=== PATIENT | female | born 1995 | race Caucasian/White ===

== ENCOUNTER 2016-12-21 13:06 | Emergency (ER) | payer SELFPAY ==
[2016-12-21] MEDS ORDERED: Fluorescein Sodium TOPICAL* 1 MG TEST ONE (13:14)
[2016-12-21] MEDS ORDERED: BSS OPTH.SOL* BTL ONE (13:14)
[2016-12-21 13:18] VITALS: BP 108/75
--- NOTE | 2016-12-21 13:51 | UC ---
Eye Complaint HPI - HPI Summary HPI Summary: L eye redness, pain, tearing, and severe light sensitivity since last night. Pt wears contacts sleeps in them "all the time," and hasn't changed them for several months. Thinks they're supposed to be discarded monthly. - History of Current Complaint Chief Complaint: UCEye Stated Complaint: EYE COMPLAINT Time Seen by Provider: 12/21/16 13:30 Hx Obtained From: Patient Hx Last Menstrual Period: 12/14/16 ?: No Onset/Duration: Gradual Onset, Lasting Days Timing: Constant Severity Initially: Moderate Severity Currently: Severe Location of Injury: Conjunctiva Character: Sharp Aggravating Factor(s): Light Alleviating Factor(s): Darkness Associated Signs And Symptoms: Positive: Photophobia, Drainage (Clear) - Risk Factors Penetrating Injury Risk Factor: Negative Acute Glaucoma Risk Factors: Negative - Allergies/Home Medications Allergies/Adverse Reactions: Allergies Allergy/AdvReac Type Severity Reaction Status Date / Time Codeine Allergy Nausea And Verified 08/20/16 11:21 Vomiting Olanzapine [From Zyprexa] Allergy Rash Verified 08/20/16 11:21 PMH/Surg Hx/FS Hx/Imm Hx Endocrine History Of: Reports: Thyroid Disease - hx of Denies: Diabetes Cardiovascular History Of: Denies: Cardiac Disorders, Hypertension Respiratory History Of: Denies: COPD, Asthma GI/ History Of: Denies: Ulcer Psychological History Of: Reports: Anxiety, Bipolar Disorder Other History Of: Negative For: Anticoagulant Therapy - Surgical History Surgical History: None - Family History Known Family History: Positive: Hypertension, Diabetes, Other - glaucoma - Social History Alcohol Use: Occasionally Substance Use Type: None Smoking Status (MU): Heavy Every Day Tobacco Smoker Type: Cigarettes Amount Used/How Often: 1/2 ppd Have You Smoked in the Last Year: Yes Household Exposure Type: Cigarettes Review of Systems Constitutional: Negative Skin: Negative Eyes: Drainage, Eye Redness, Photophobia ENT: Negative Respiratory: Negative Cardiovascular: Negative Gastrointestinal: Negative Genitourinary: Negative Motor: Negative Neurovascular: Negative Musculoskeletal: Negative Neurological: Negative Psychological: Negative All Other Systems Reviewed And Are Negative: Yes Physical Exam Triage Information Reviewed: Yes Appearance: Well-Nourished, Pain Distress - mod Vital Signs: Initial Vital Signs Temp 98.4 F 12/21/16 13:12 Pulse 94 12/21/16 13:12 Resp 12 12/21/16 13:12 BP 108/75 12/21/16 13:12 Pulse Ox 100 12/21/16 13:12 Eye Exam: Other - unable to assess pupillary reaction due to pt photophobia Eyes: Positive: Conjunctiva Inflamed, Other: - pinpoint fluorescein uptake in L cornea, near upper medial central vision ENT: Positive: Hearing grossly normal, Pharynx normal, Nasal drainage, TMs normal. Negative: Tonsillar swelling, Tonsillar exudate Dental Exam: Normal Neck exam: Normal Neck: Positive: Supple, Nontender, No Lymphadenopathy Respiratory Exam: Normal Respiratory: Positive: Chest non-tender, Lungs clear, Normal breath sounds, No respiratory distress, No accessory muscle use Cardiovascular Exam: Normal Cardiovascular: Positive: RRR, No Murmur Musculoskeletal Exam: Normal Neurological Exam: Normal Neurological: Positive: Alert Psychological Exam: Normal Skin Exam: Normal Eye Complaint Course/Dx - Differential Dx/Diagnosis Provider Diagnoses: L eye keratitis Discharge - Discharge Plan Condition: Stable Disposition: HOME Patient Education Materials: Keratitis (ED) Referrals: Ji Mccracken MD [Medical Doctor] - Additional Instructions: Please follow up at [facility] at 2:15 today as scheduled. Their base fee for the appointment is $198.
== END 2016-12-21 13:55 | disposition home or self-care (01) ==
LOC: UCEAST 13:06
DX: H16.9 Unspecified keratitis (principal); Z88.5 Allergy status to narcotic agent; F17.210 Nicotine dependence, cigarettes, uncomplicated
CPT/HCPCS: 99211; A9270-GY; G0463

== ENCOUNTER 2017-09-15 14:49 | Emergency (ER) | payer SELFPAY ==
[2017-09-15 14:59] VITALS: BP 111/67
--- NOTE | 2017-09-15 18:52 | UC ---
Justice Elliott Alfonso, scribed for Nellie Dos Santos DO on 09/15/17 at 1623 . General HPI - HPI Summary HPI Summary: This patient is a 21 year old F presenting to [facility] accompanied by male with a chief complaint of productive coughing interfering with sleep since one week ago. The patient rates the pain 1/10 in severity. Symptoms aggravated by supine position, tobacco use and deep breaths. Symptoms alleviated by nothing. Patient reports chest congestion, sore throat, rhinorrhea, insomnia, and orthopnea. Patient denies fever, chills, hemoptysis, ear ache, rash, and headache. Medications reviewed this visit. - History of Current Complaint Chief Complaint: UCRespiratory Stated Complaint: COUGH Time Seen by Provider: 09/15/17 16:16 Hx Obtained From: Patient Hx Last Menstrual Period: iud Onset/Duration: Gradual Onset, Lasting Weeks - 1, Still Present Timing: Constant Onset Severity: Moderate Current Severity: Moderate Pain Intensity: 1 - /10 Associated Signs & Symptoms: Positive: Other - chest congestion, sore throat, rhinorrhea. Patient denies fever, chills, hemoptysis, ear ache, rash, and headache. - Allergy/Home Medications Allergies/Adverse Reactions: Allergies Allergy/AdvReac Type Severity Reaction Status Date / Time Codeine Allergy Nausea And Verified 09/15/17 14:59 Vomiting Olanzapine [From Zyprexa] Allergy Rash Verified 09/15/17 14:59 Home Medications: Home Medications Pseudoephedrine-Guaifenesin [Mucinex D 60-600 mg] 1 tab PO Q12H PRN 09/15/17 [ History Confirmed 09/15/17] PMH/Surg Hx/FS Hx/Imm Hx Psychological History: Anxiety Other History Of: Negative For: Anticoagulant Therapy - Surgical History Surgical History: None - Family History Known Family History: Positive: Hypertension, Diabetes, Other - glaucoma - Social History Alcohol Use: Occasionally Substance Use Type: None Smoking Status (MU): Heavy Every Day Tobacco Smoker Type: Cigarettes Amount Used/How Often: 1/2 ppd Have You Smoked in the Last Year: Yes Household Exposure Type: Cigarettes Review of Systems ENT: Sore Throat, Nasal Discharge Respiratory: Cough, Other - chest congestion, orthopnea Neurological: Other - insomnia All Other Systems Reviewed And Are Negative: Yes Physical Exam Triage Information Reviewed: Yes Appearance: Well-Appearing, No Pain Distress, Well-Nourished Vital Signs: Initial Vital Signs Temp 98.3 F 09/15/17 14:54 Pulse 118 09/15/17 14:54 Resp 20 09/15/17 14:54 BP 111/67 09/15/17 14:54 Pulse Ox 98 09/15/17 14:54 Vital Signs Reviewed: Yes Eyes: Positive: Conjunctiva Clear. Negative: Discharge ENT: Positive: Hearing grossly normal, Pharynx normal, TMs normal. Negative: Tonsillar swelling, Tonsillar exudate, Trismus, Muffled/hoarse voice Neck: Positive: Supple, Nontender Respiratory: Positive: Chest non-tender, Lungs clear, Normal breath sounds, No respiratory distress, Other: - Bronchospasm Cardiovascular: Positive: RRR - 84 BPM, No Murmur Abdomen Description: Positive: Nontender, Soft Bowel Sounds: Positive: Present Musculoskeletal Exam: Normal Neurological: Positive: Alert, Muscle Tone Normal Psychological: Positive: Age Appropriate Behavior Skin Exam: Normal Skin: Positive: Other - Normal, Warm, Dry, Normal color Course/Dx - Course Course Of Treatment: This patient is a 21 year old F presenting to [facility] accompanied by male with a chief complaint of productive coughing since one week ago. The patient rates the pain 1/10 in severity. Symptoms aggravated by tobacco use and deep breaths. Symptoms alleviated by nothing. Patient reports chest congestion, sore throat, rhinorrhea, insomnia, and orthopnea. Patient denies fever, chills, hemoptysis, ear ache, rash, and headache. Medications reviewed this visit. She reports having taken codeine cough surup with no problems in the past. Patient will be discharged with prescription and follow up from PCP. The patient is agreeable with this plan. - Differential Dx - Multi-Symptom Provider Diagnoses: bronchospasm Discharge - Discharge Plan Condition: Stable Disposition: HOME Prescriptions: Albuterol HFA INHALER* [Ventolin HFA Inhaler*] 2 puff INH Q4H PRN #1 mdi PRN Reason: Sob/Wheezing Benzonatate CAP* [Tessalon 100 MG CAP*] 100 mg PO TID #30 cap guaiFENesin/CODIEN 100MG-10MG* [Robitussin AC 100Mg-10Mg*] 5 - 10 ml PO Q4H PRN #100 udc MDD 10ml PRN Reason: Cough Patient Education Materials: Bronchospasm (ED) Forms: *Work Release Referrals: [facility] [Outside] Additional Instructions: POST-VIRAL COUGH: A very common cause of persistent cough is called "post-viral cough syndrome." During a viral infection, the virus can irritate your bronchial tubes. Then even after the infection is over, you may continue to cough. Your cough is left over from your recent viral infection. You do not show evidence of a continuing viral infection,bronchitis or pneumonia. You do not need antibiotics at this time. It may be helpful to use inhaled cool mist, throat lozenges, cough medication or bronchial inhalers to open up your bronchial tubes. We expect you will be improved in a week or two. Please get back to us if you have fever, chest pain, colored sputum, blood in the sputum, wheezing or shortness of breath. INHALED BRONCHODILATORS: You have received a prescription for an inhaled bronchodilator -- a medication which stimulates the airways in the lung to dilate. This improves the flow of air in asthma, bronchitis, and emphysema. These medicines have some similarity to adrenaline, and can cause similar side effects: shakiness, racing heart, and a sense of nervousness. These side effects decrease with time. Contact your doctor if these side effects are severe. Do not over-use the medicine. Too-frequent use of the inhaler may make it ineffective. Call your doctor if the inhaler is not controlling your symptoms at the prescribed doses. COUGH-SUPPRESSANT & EXPECTORANT MEDICATION: You are to use a cough medication as needed for relief of symptoms. This medicine is a combination of an expectorant (to make the mucous thinner and more easily "coughed up") and a cough suppressant (to reduce the frequency of coughing). The cough-suppressant medicine is related to narcotics. You may experience mild nausea and sleepiness. Some patients who are very sensitive to narcotics may have stomach pain from this medicine. Taking the medicine with food reduces these side effects. Do not drive or work with machinery until you know how this medicine affects you. The expectorant should have no side effects. Iodine-containing expectorants (such as organidin) should not be taken by persons with active thyroid disease unless approved by your doctor. Call the doctor if you develop shortness of breath, hives, rash, itching, lightheadedness, or severe nausea and vomiting. EXPECTORANT MEDICATION:Continue mucinex An expectorant medicine has been prescribed. This type of drug makes mucous thinner, helping the sinuses, nose, and bronchial tubes to remain free of pus and mucous. Expectorants make a cough less severe and more comfortable, and help infected sinuses drain. In general, antihistamines defeat the purpose of the expectorant by making mucous thicker. They should be avoided unless specifically recommended by your physician. TESSALON PERLES: You have received a prescription for Tessalon Perles (benzonatate). This is a non-narcotic medicine for relief of cough. It usually works in about 15- 20 minutes and lasts around four hours. Tessalon Perles should be swallowed. They should not be chewed or dissolved in the mouth (this can produce temporary numbing of the mouth and choking can occur). If you develop any adverse effects such as wheezing, shortness of breath, hives, rash, itching, or lightheadedness, please return at once. FOLLOW-UP CARE: You should establish with a private physician for follow-up care. If you are unable to get a timely appointment, or if you are worsening, call us or return for re-evaluation. An additional resource available to assist in finding the appropriate physician for your health care needs is the [facility]erral [facility]. You may contact them by calling [phone]. The documentation as recorded by the Justice bowles Alfonso accurately reflects the service I personally performed and the decisions made by me, Nellie Dos Santos DO.
== END 2017-09-15 17:01 | disposition home or self-care (01) ==
LOC: UCEAST 14:49
DX: J98.01 Acute bronchospasm (principal); Z88.5 Allergy status to narcotic agent; F41.9 Anxiety disorder, unspecified; F17.210 Nicotine dependence, cigarettes, uncomplicated
CPT/HCPCS: 99212; G0463

== ENCOUNTER 2018-03-21 11:53 | Emergency (ER) | payer SELFPAY ==
[2018-03-21 13:06] LABS: ABS Basophils 0 10^3/ul (0-0.2); ABS Eosinophils 0.1 10^3/ul (0-0.6); ABS Lymphocytes 1.1 10^3/ul (1.0-4.8); ABS Monocytes 0.7 10^3/ul (0-0.8); ABS Nucleated RBC 0 10^3/ul; Eosinophil % 0.5 % (0-6); Hematocrit 46 % (35-47); Hemoglobin 15.4 g/dl (12.0-16.0); Mean Corpuscular HGB Conc 34 g/dl (31-36); Mean Corpuscular Hemoglobin 31 pg (27-31); Mean Corpuscular Volume 94 fL (80-97); Mean Platelet Volume 8.7 um3 (7.4-10.4); Nucleated Red Blood Cells % 0.1; Platelet Count 212 10^3/ul (150-450); Red Cell Distribution Width 13 % (10.5-15); White Blood Count 9.9 10^3/ul (3.5-10.8)
[2018-03-21 13:22] LABS: EGFR Non-African American 74.7 (>60)
--- NOTE | 2018-03-21 15:53 | ED ---
Substance Abuse/Use - HPI Summary HPI Summary: Patient is a 22-year-old female presenting to the ED requesting detox. She states she has been drinking alcohol and using cocaine daily. She endorses daily use which is affecting her daily life. She lives with her 4-year-old at home and is requesting a treatment, either outpatient or inpatient. She denies any pain today, but endorses fatigue. Last use of cocaine and alcohol were yesterday. Denies any cannabis. She is otherwise healthy and takes no medications. She denies any other concerns or symptoms on this date. Denies any cardiac history. No prior admissions to treatment facilities. History of bipolar disorder and thyroid disease. - History Of Current Complaint Chief Complaint: EDDetoxRequest Stated Complaint: ALCOHOL/DRUG REHAB REQUEST Time Seen by Provider: 03/21/18 12:31 Hx Obtained From: Patient Hx Last Menstrual Period: iud ?: No Onset/Duration of Drug/ETOH Abuse: Years Ingestion History: Type/Name Of Drug - Alcohol and cocaine, Amount Ingested Overdose Characteristics: Oral, IV Timing Of Abuse: Daily Severity Initially: Severe Severity Currently: Severe Aggravating Factor(s): Nothing Alleviating Factor(s): Nothing - Allergies/Home Medications Allergies/Adverse Reactions: Allergies Allergy/AdvReac Type Severity Reaction Status Date / Time MS Codeine [Codeine] Allergy Nausea And Verified 03/21/18 11:58 Vomiting MS Olanzapine [From Zyprexa] Allergy Rash Verified 03/21/18 11:58 Home Medications: Home Medications Levonorgestrel (Iud) [Mirena IUD] 20 mcg IU SEE INSTRUCTIONS 03/21/18 [History Confirmed 03/21/18] PMH/Surg Hx/FS Hx/Imm Hx Previously Healthy: Yes Endocrine/Hematology History: Reports: Hx Thyroid Disease - hx of Denies: Hx Anticoagulant Therapy, Hx Diabetes Cardiovascular History: Denies: Hx Hypertension Respiratory History: Denies: Hx Asthma, Hx Chronic Obstructive Pulmonary Disease (COPD) GI History: Denies: Hx Ulcer Psychiatric History: Reports: Hx Anxiety, Hx Bipolar Disorder Infectious Disease History: No Infectious Disease History: Denies: Hx Clostridium Difficile, Hx Hepatitis, Hx Human Immunodeficiency Virus (HIV), Hx of Known/Suspected MRSA, Hx Shingles, Hx Tuberculosis, Hx Known/ Suspected VRE, Hx Known/Suspected VRSA, History Other Infectious Disease, Traveled Outside the [place] in Last 30 Days - Family History Known Family History: Positive: None, Hypertension, Diabetes, Other - glaucoma - Social History Occupation: Employed Part-time Lives: With Family Alcohol Use: Occasionally Hx Substance Use: Yes Substance Use Type: Reports: Cocaine, Marijuana, Synthetic Drugs, Prescribed Hx Tobacco Use: Yes Smoking Status (MU): Heavy Every Day Tobacco Smoker Type: Cigarettes Amount Used/How Often: 1/2 ppd Have You Smoked in the Last Year: Yes Review of Systems Positive: Fatigue. Negative: Fever, Chills, Skin Diaphoresis Negative: Photophobia, Blurred Vision, Diplopia Negative: Dental Pain, Sore Throat Negative: Palpitations, Chest Pain Negative: Shortness Of Breath, Cough Negative: Abdominal Pain, Vomiting Genitourinary: Negative Positive: no symptoms reported, see HPI Negative: Arthralgia, Myalgia Negative: Headache, Weakness, Paresthesia Positive: Anxious, Depressed All Other Systems Reviewed And Are Negative: Yes Physical Exam Triage Information Reviewed: Yes Vital Signs On Initial Exam: Initial Vitals Temp Pulse Resp BP Pulse Ox 97.9 F 76 15 120/86 100 03/21/18 11:55 03/21/18 11:55 03/21/18 11:55 03/21/18 11:55 03/21/18 11:55 Vital Signs Reviewed: Yes Appearance: Positive: Well-Appearing, Well-Nourished Skin: Positive: Skin Color Reflects Adequate Perfusion Head/Face: Positive: Normal Head/Face Inspection Eyes: Positive: EOMI, ZAC Neck: Positive: Supple, Nontender, No Lymphadenopathy Respiratory/Lung Sounds: Positive: Clear to Auscultation Cardiovascular: Positive: RRR, Pulses are Symmetrical in both Upper and Lower Extremities Musculoskeletal: Positive: Strength/ROM Intact Neurological: Positive: Sensory/Motor Intact, Alert, Oriented to Person Place, Time, Speech Normal Psychiatric: Positive: Affect/Mood Appropriate AVPU Assessment: Alert Diagnostics - Vital Signs Vital Signs Temp Pulse Resp BP Pulse Ox 03/21/18 11:55 97.9 F 76 15 120/86 100 - Laboratory Lab Results: Lab Results 03/21/18 03/21/18 03/21/18 Range/Units 12:56 12:56 12:56 WBC 9.9 (3.5-10.8) 10^3/ul RBC 4.90 (4.0-5.4) 10^6/ul Hgb 15.4 (12.0-16.0) g/dl Hct 46 (35-47) % MCV 94 (80-97) fL MCH 31 (27-31) pg MCHC 34 (31-36) g/dl RDW 13 (10.5-15) % Plt Count 212 (150-450) 10^3/ul MPV 8.7 (7.4-10.4) um3 Neut % (Auto) 80.9 (38-83) % Lymph % (Auto) 11.0 L (25-47) % [place] % (Auto) 7.4 H (0-7) % Eos % (Auto) 0.5 (0-6) % Baso % (Auto) 0.2 (0-2) % Absolute Neuts (auto) 8.0 H (1.5-7.7) 10^3/ul Absolute Lymphs (auto) 1.1 (1.0-4.8) 10^3/ul Absolute Monos (auto) 0.7 (0-0.8) 10^3/ul Absolute Eos (auto) 0.1 (0-0.6) 10^3/ul Absolute Basos (auto) 0 (0-0.2) 10^3/ul Absolute Nucleated RBC 0 10^3/ul Nucleated RBC % 0.1 Sodium 139 (139-145) mmol/L Potassium 3.7 (3.5-5.0) mmol/L Chloride 103 (101-111) mmol/L Carbon Dioxide 27 (22-32) mmol/L Anion Gap 9 (2-11) mmol/L BUN 6 (6-24) mg/dL Creatinine 0.93 (0.51-0.95) mg/dL Est GFR ( Amer) 96.1 (>60) Est GFR (Non-Af Amer) 74.7 (>60) BUN/Creatinine Ratio 6.5 L (8-20) Glucose 93 (70-100) mg/dL Calcium 10.0 (8.6-10.3) mg/dL Total Bilirubin 0.60 (0.2-1.0) mg/dL AST 19 (13-39) U/L ALT 12 (7-52) U/L Alkaline Phosphatase 53 (34-104) U/L Total Protein 8.0 (6.4-8.9) g/dL Albumin 5.0 (3.2-5.2) g/dL Globulin 3.0 (2-4) g/dL Albumin/Globulin Ratio 1.7 (1-3) Salicylates < 2.50 (<30) mg/dL Serum Alcohol < 10 (<10) mg/dL Hepatitis C Antibody Nonreactive (Nonreactive) HIV 1&2 Antibody Nonreactive (Nonreactive) Result Diagrams: 03/21/18 12:56 03/21/18 12:56 Lab Statement: Any lab studies that have been ordered have been reviewed, and results considered in the medical decision making process. Course/Dx - Course Course Of Treatment: During the course of treatment, EKG and labs are obtained for clearance to treatment facility. Lungs are clear to auscultation. RRR. Patient is alert and oriented 3. She appears to be somewhat anxious over attending a treatment facility and is asking questions in regards to outpatient as opposed to inpatient. Social work consult called and given information. [facility] made aware of patient. All labs and EKG were given to [facility] advocate on arrival. Patient is okay with plan of discharge to treatment facility. - Diagnoses Differential Diagnosis/HQI/PQRI: Positive: Alcohol Abuse, Bipolar Disorder, Drug Abuse Provider Diagnoses: Alcohol abuse, Drug abuse Discharge - Sign-Out/Discharge Documenting (check all that apply): Discharge/Admit/Transfer - Discharge Plan Condition: Stable Disposition: HOME Patient Education Materials: Polysubstance Abuse (ED), Medical Clearance for Substance Abuse Treatment (ED) Forms: *Work Release Referrals: No Primary Care Phys,NOPCP [Primary Care Provider] - Additional Instructions: Please go directly to a treatment facility - Billing Disposition and Condition Condition: STABLE Disposition: HOME
[2018-03-21 15:57] VITALS: BP 125/80
== END 2018-03-21 15:55 | disposition home or self-care (01) ==
LOC: ED 11:53
DX: F10.10 Alcohol abuse, uncomplicated (principal); F19.10 Other psychoactive substance abuse, uncomplicated; R53.83 Other fatigue; F17.210 Nicotine dependence, cigarettes, uncomplicated
CPT/HCPCS: 36415; 80053; 80320; 80329; 85025; 86703; 86803; 93005; 99282; G0480

== ENCOUNTER 2018-04-11 07:21 | Emergency (ER) | payer SELFPAY ==
[2018-04-11 07:37] VITALS: BP 105/72
[2018-04-11] MEDS ORDERED: Acetaminophen TAB* 325 MG PO ONE (08:06)
--- NOTE | 2018-04-11 08:11 | UC ---
Velasquez Elliott Julia, scribed for Gardenia Lopez MD on 04/11/18 at 0755 . Throat Pain/Nasal Bryan HPI - HPI Summary HPI Summary: This patient is a 22 year old F presenting to [facility] [place] with a chief complaint of sore throat and headache for the past three days. Patient reports chills, ear pain, and mild nausea. Patient denies rashes. The patient rates the pain 6/10 in severity. Pt has taken Excedrin taken last evening, but no other medications taken since then. + sick contacts. + painful swallowing, no drooling. No rash. no vision changes, ear pain. No sinus congestion, + fatigue. 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 No concern for . Allergies reviewed with patient. - History of Current Complaint Chief Complaint: UCGeneralIllness Stated Complaint: HEADACHE,SORE THROAT Time Seen by Provider: 04/11/18 07:36 Hx Obtained From: Patient Hx Last Menstrual Period: states does not get period - on mirena Onset/Duration: Lasting Days, Still Present Pain Intensity: 6 Pain Scale Used: 0-10 Numeric Cough: None Associated Signs & Symptoms: Positive: Fever. 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 Lives: With Family Alcohol Use: Weekly Substance Use Type: None Smoking Status (MU): Heavy Every Day Tobacco Smoker Type: Cigarettes Amount Used/How Often: 1/2 ppd Have You Smoked in the Last Year: Yes Household Exposure Type: Cigarettes Review of Systems Constitutional: Fever, Chills Skin: Negative ENT: Sore Throat Gastrointestinal: Nausea Neurological: Headache All Other Systems Reviewed And Are Negative: Yes Physical Exam Triage Information Reviewed: Yes Appearance: Well-Appearing, No Pain Distress, Well-Nourished, Other: - tired appearing Vital Signs: Initial Vital Signs Temp 101.7 F 04/11/18 07:30 Pulse 104 04/11/18 07:30 Resp 18 04/11/18 07:30 BP 105/72 04/11/18 07:30 Pulse Ox 98 04/11/18 07:30 Vital Signs Reviewed: Yes Eye Exam: Normal Eyes: Positive: Conjunctiva Clear ENT Exam: Normal ENT: Positive: Hearing grossly normal, Pharynx normal, Pharyngeal erythema, Nasal congestion, TMs normal, Tonsillar exudate, Uvula midline. Negative: Sinus tenderness Dental Exam: Normal Neck: Positive: Supple, Nontender. Negative: No Lymphadenopathy - mild submandibular LA L>R Respiratory Exam: Normal Respiratory: Positive: Chest non-tender, Lungs clear, Normal breath sounds, No respiratory distress, No accessory muscle use Cardiovascular Exam: Normal Cardiovascular: Positive: RRR, No Murmur Abdominal Exam: Normal Abdomen Description: Positive: Nontender, No Organomegaly, Soft Bowel Sounds: Positive: Present Musculoskeletal Exam: Normal Musculoskeletal: Positive: Strength Intact Neurological Exam: Normal Neurological: Positive: Alert Psychological Exam: Normal Psychological: Positive: Normal Response To Family Skin Exam: Normal Throat Pain/Nasal Course/Dx - Course Course Of Treatment: pt with fever, headache, progressive sore throat. Pt with + strep. Will Rx amox (pt given urgent RX - no insurance). motrin/apap. gargle spit. secretion precaution. return precaution. pt comfortable and in agreement with plan - Differential Dx/Diagnosis Provider Diagnoses: strep pharyngitis Discharge - Sign-Out/Discharge Documenting (check all that apply): Discharge/Admit/Transfer - Discharge Plan Condition: Stable Disposition: HOME Prescriptions: Amoxicillin PO (*) [Amoxicillin 875 MG (*)] 875 mg PO BID #20 tab Ibuprofen TAB* [Motrin TAB* 600 MG] 600 mg PO Q6H PRN #30 tab PRN Reason: pain or fever Patient Education Materials: Strep Throat (ED) Forms: *Work Release Referrals: No Primary Care Phys,NOPCP [Primary Care Provider] - Additional Instructions: - Okay to alternate ibuprofen (Advil, Motrin)600mg and Tylenol 1000mg every 3 hours for pain. Take with food. Do NOT take for more than 4-5 days. - Okay to gargle and spit every 4 hours as needed for pain - Stay well hydrated - frequent sips of cold fluids will be soothing to your throat (popsicles, jello, ice cream, ice water). Avoid excess caffeine until your symptoms have resolved. - Do not share eating, drinking utensils.Do not share eating or drinking utensils until you symptoms are resolved. Clean items that may get your secretions such as cell phones, ipads, computer mouse, television remotes. Once you have been on antibiotics for 48 hours, change your toothbrush and your pillowcase. Contact your doctor or return with any questions or concerns - Billing Disposition and Condition Condition: STABLE Disposition: HOME The documentation as recorded by the Velasquez bowles Julia accurately reflects the service I personally performed and the decisions made by me, Gardenia Lopez MD.
== END 2018-04-11 08:22 | disposition home or self-care (01) ==
LOC: UCEAST 07:21
DX: J02.0 Streptococcal pharyngitis (principal); Z88.8 Allergy status to other drugs, medicaments and biological substances; F17.210 Nicotine dependence, cigarettes, uncomplicated
CPT/HCPCS: 87651; 99212; A9270-GY; G0463

== ENCOUNTER 2018-05-23 01:06 | Emergency (ER) | payer OTHER ==
[2018-05-23] MEDS ORDERED: methylPREDNISolone 125 MG* 2 ML VIAL IV ONE (01:28)
[2018-05-23] MEDS ORDERED: Famotidine IV* 10 MG/ML 2 ML (20 mg) IV ONE (01:28)
[2018-05-23] MEDS ORDERED: diPHENhydraMINE IV* 50 MG/ML 1 ml VIAL (BENADRYL) IV ONE (01:28)
[2018-05-23] MEDS ORDERED: NS 0.9% 1000 ML* 1,000 ML IV ONE (01:28)
[2018-05-23] MEDS ORDERED: Famotidine IV* 10 MG/ML 2 ML (20 mg) ONE (01:33)
--- NOTE | 2018-05-23 01:36 | ED ---
Skin Complaint - HPI Summary HPI Summary: Patient complains of generalized rash on face, neck, chest, back, bilateral upper legs starting today at noon, and bifrontal headache which is consistent with prior headaches. Rashes pruritic on face only. Patient states lips are swollen, but denies swelling of the throat or tongue, SOB, fever, cough, sore throat, N/V/D, abdominal pain, change in urine or BM. Patient has taken 25 mg Benadryl at noon, 50 mg of Benadryl at 9 PM, and 25 mg at 11:30 PM without improvement in symptoms. Started new med Lamotrigine 25mg PO daily on 05/10/18 and was supposed to increase to 25 mg BID after 2 weeks, but pt misunderstood and increased to 25 mg BID after one week. Has been taking 25 MG twice a day for 6 days. Patient states provider told her she may get a rash from the medication, and to come to the ED if they got to her face. Medical history is bipolar. - History of Current Complaint Chief Complaint: EDRashSkinAbscess Time Seen by Provider: 05/23/18 01:19 Stated Complaint: RASH Hx Obtained From: Patient Hx Last Menstrual Period: states does not get period - on mirena Onset/Duration: Started Hours Ago Skin Exposure Onset/Duration: Hours Ago Timing: Constant Onset Severity: Mild Current Severity: Moderate Pain Intensity: 4 Pain Scale Used: 0-10 Numeric Skin Location: Diffuse Aggravating Symptom(s): Nothing Alleviating Symptom(s): Nothing Associated Signs & Symptoms: Rash - Allergy/Home Medications Allergies/Adverse Reactions: Allergies Allergy/AdvReac Type Severity Reaction Status Date / Time olanzapine Allergy Agitation Verified 04/11/18 07:28 PMH/Surg Hx/FS Hx/Imm Hx Endocrine/Hematology History: Reports: Hx Thyroid Disease - hx of Denies: Hx Anticoagulant Therapy, Hx Diabetes Cardiovascular History: Denies: Hx Hypertension Respiratory History: Denies: Hx Asthma, Hx Chronic Obstructive Pulmonary Disease (COPD) GI History: Denies: Hx Ulcer History: Denies: Hx Dialysis EENT History: Denies: Hx Deafness Neurological History: Denies: Hx CVA Psychiatric History: Reports: Hx Anxiety, Hx Bipolar Disorder Infectious Disease History: No Infectious Disease History: Denies: Hx Clostridium Difficile, Hx Hepatitis, Hx Human Immunodeficiency Virus (HIV), Hx of Known/Suspected MRSA, Hx Shingles, Hx Tuberculosis, Hx Known/ Suspected VRE, Hx Known/Suspected VRSA, History Other Infectious Disease, Traveled Outside the [place] in Last 30 Days - Family History Known Family History: Positive: None, Hypertension, Diabetes, Other - glaucoma - Social History Alcohol Use: Weekly Hx Substance Use: Yes Substance Use Type: Reports: None Hx Tobacco Use: Yes Smoking Status (MU): Heavy Every Day Tobacco Smoker Type: Cigarettes Amount Used/How Often: 1/2 ppd Have You Smoked in the Last Year: Yes Review of Systems Constitutional: Negative Eyes: Negative ENT: Negative Cardiovascular: Negative Respiratory: Negative Gastrointestinal: Negative Genitourinary: Negative Musculoskeletal: Negative Positive: Rash Positive: Headache Psychological: Normal All Other Systems Reviewed And Are Negative: Yes Physical Exam - Summary Physical Exam Summary: Elevated maculopapular rash on face, neck, back, chest wall, bilateral upper thighs. Rash is blanchable. Mild swelling of lips. No swelling of tongue or throat. Triage Information Reviewed: Yes Vital Signs On Initial Exam: Initial Vitals Temp Pulse Resp BP Pulse Ox 101.3 F 100 18 131/89 100 05/23/18 01:07 05/23/18 01:07 05/23/18 01:07 05/23/18 01:07 05/23/18 01:07 Vital Signs Reviewed: Yes Appearance: Positive: Well-Appearing Skin: Positive: Warm Head/Face: Positive: Normal Head/Face Inspection Eyes: Positive: Normal ENT: Positive: Normal ENT inspection Neck: Positive: Supple Respiratory/Lung Sounds: Positive: Clear to Auscultation Cardiovascular: Positive: Normal Abdomen Description: Positive: Nontender Musculoskeletal: Positive: Normal Neurological: Positive: Normal Psychiatric: Positive: Normal AVPU Assessment: Alert - Hood Coma Scale Best Eye Response: 4 - Spontaneous Best Motor Response: 6 - Obeys Commands Best Verbal Response: 5 - Oriented Coma Scale Total: 15 Diagnostics - Vital Signs Vital Signs Temp Pulse Resp BP Pulse Ox 05/23/18 01:07 101.3 F 100 18 131/89 100 - Laboratory Result Diagrams: 05/23/18 01:58 05/23/18 01:58 Lab Statement: Any lab studies that have been ordered have been reviewed, and results considered in the medical decision making process. Re-Evaluation - Re-Evaluation 1 Re-Evaluation Time: 02:45 Comment: Rash somewhat improved with Solu-Medrol, Benadryl, pepcid. She continues to have no intraoral swelling or dysphasia, or SOB. Course/Dx - Course Course Of Treatment: Patient complains of generalized rash on face, neck, chest , back, bilateral upper legs starting today at noon, and bifrontal headache which is consistent with prior headaches. Rashes pruritic on face only. Patient states lips are swollen, but denies swelling of the throat or tongue, SOB, fever, cough, sore throat, N/V/D, abdominal pain, change in urine or BM. Patient has taken 25 mg Benadryl at noon, 50 mg of Benadryl at 9 PM, and 25 mg at 11:30 PM without improvement in symptoms. Started new med Lamotrigine 25mg PO daily on 05/10/18 and was supposed to increase to 25 mg BID after 2 weeks, but pt misunderstood and increased to 25 mg BID after one week. Has been taking 25 MG twice a day for 6 days. Patient states provider told her she may get a rash from the medication, and to come to the ED if they got to her face. Medical history is bipolar. Patient's symptoms improved with Solu-Medrol, Pepcid, Benadryl IV. Rx for prednisone 40 mg by mouth daily, Pepcid 40 mg by mouth daily. Patient has appointment today on Tuesday for follow-up on her lamotrigine. - Diagnoses Provider Diagnoses: Medication reaction, Rash Discharge - Sign-Out/Discharge Documenting (check all that apply): Discharge/Admit/Transfer - Discharge Plan Condition: Stable Disposition: HOME Prescriptions: Famotidine [Pepcid] 40 mg PO DAILY 5 Days #5 tablet predniSONE TAB* [Deltasone 20 MG TAB*] 40 mg PO DAILY 5 Days #5 tab Patient Education Materials: Acute Rash (ED), General Allergic Reaction (ED) Forms: *Work Release Referrals: No Primary Care Phys,NOPCP [Primary Care Provider] - Additional Instructions: Follow-up with primary care. Return to the ED for any new or worsening symptoms - Billing Disposition and Condition Condition: STABLE Disposition: Home
[2018-05-23 02:17] LABS: ABS Basophils 0 10^3/ul (0-0.2); ABS Eosinophils 0.2 10^3/ul (0-0.6); ABS Lymphocytes 0.6 10^3/ul (1.0-4.8); ABS Monocytes 0.3 10^3/ul (0-0.8); ABS Neutrophils 3.5 10^3/ul (1.5-7.7); ABS Nucleated RBC 0 10^3/ul; Hematocrit 41 % (35-47); Hemoglobin 14.1 g/dl (12.0-16.0); Lymphocyte % 12.5 % (25-47); Mean Corpuscular HGB Conc 34 g/dl (31-36); Mean Corpuscular Hemoglobin 32 pg (27-31); Mean Corpuscular Volume 92 fL (80-97); Mean Platelet Volume 9.4 um3 (7.4-10.4); Nucleated Red Blood Cells % 0.1; Platelet Count 106 10^3/ul (150-450); Red Blood Count 4.48 10^6/ul (4.00-5.40); Red Cell Distribution Width 14 % (10.5-15); White Blood Count 4.7 10^3/ul (3.5-10.8)
[2018-05-23 02:28] LABS: EGFR Non-African American 73.8 (>60)
[2018-05-23 03:00] VITALS: BP 112/58
== END 2018-05-23 02:59 | disposition home or self-care (01) ==
LOC: ED 01:06
DX: L25.8 Unspecified contact dermatitis due to other agents (principal); T42.6X5A Adverse effect of other antiepileptic and sedative-hypnotic drugs, initial encounter; Y92.9 Unspecified place or not applicable; F17.210 Nicotine dependence, cigarettes, uncomplicated; Z88.8 Allergy status to other drugs, medicaments and biological substances
CPT/HCPCS: 36415; 80053; 83605; 85025; 86140; 96361; 96374; 96375; 99282; J1200; J2930

== ENCOUNTER 2018-05-23 13:45 | Emergency (ER) | payer OTHER ==
[2018-05-23 14:05] VITALS: BP 128/80
--- NOTE | 2018-05-23 14:10 | UC ---
Allergic Reaction HPI - HPI Summary HPI Summary: Patient presents to urgent care. Patient is a 22-year-old who states she recently started lamotrigine. Patient states she also restarted her lithium although states this was unchanged from a previous prescription. Patient states she believes she is developed an allergic reaction to the lamotrigine. Patient states she was evaluated and treated in the emergency department last evening for rash and some shortness of breath. Patient states she was given IV medications that included Benadryl, prednisone, and Pepcid. Patient states she was watched approximately 2 hours prior to feel better was discharged home. Patient states when she woke up this morning she felt that the rash was worse. Patient states the rash is now spread all over her body. She states it itching on her back. Patient states she feels like her mouth is full. Patient denies trouble breathing. Patient denies lightheadedness. Patient denies difficulty swallowing or handling her secretions. At approximately 11:30 patient took 40 mg of prednisone, 20 mg of Pepcid, and at noon took 75 mg of Benadryl. Patient states she came here she felt like her symptoms were persisting. Patient's medications reviewed this visit. - History of Current Complaint Chief Complaint: UCAllergicReaction Stated Complaint: RASH Time Seen by Provider: 05/23/18 14:09 Hx Obtained From: Patient Hx Last Menstrual Period: states does not get period - on mirena ?: No Severity Initially: Moderate Severity Currently: Moderate Pain Intensity: 7 Pain Scale Used: 0-10 Numeric Location: Diffuse Character: Pruritus, Hives Associated Signs And Symptoms: Positive: Other: - mouth tingling - Allergies/Home Medications Allergies/Adverse Reactions: Allergies Allergy/AdvReac Type Severity Reaction Status Date / Time lamotrigine [From Lamictal] Allergy Severe Hives/Diff. Verified 05/23/18 14:05 Breathing/I tching olanzapine Allergy Agitation Verified 04/11/18 07:28 Home Medications: Home Medications Wilmot Carbonate [Wilmot Carbonate 300 mg cap] 05/23/18 [History] diphenhydrAMINE HCl [Benadryl Allergy 25 MG CAP] 05/23/18 [History] PMH/Surg Hx/FS Hx/Imm Hx Previously Healthy: Yes Psychological History: Bipolar Disorder Other History Of: Negative For: Anticoagulant Therapy - Surgical History Surgical History: None - Family History Known Family History: Positive: None, Hypertension, Diabetes, Other - glaucoma - Social History Lives: With Family Alcohol Use: Occasionally Substance Use Type: None Smoking Status (MU): Heavy Every Day Tobacco Smoker Type: Cigarettes Amount Used/How Often: 1/2 ppd Have You Smoked in the Last Year: Yes Household Exposure Type: Cigarettes Review of Systems Skin: Rash Respiratory: Negative All Other Systems Reviewed And Are Negative: Yes Physical Exam - Summary Physical Exam Summary: Vital Signs Reviewed: Yes A+Ox3, mildly anxious speaking full, easy sentences Eyes: Conjunctiva Clear, ZAC. EOM intact and full ENT: Hearing grossly normal TM x 2 clear, mmoist, uvula midline, no exudate, no erythema Neck: Positive: Supple Respiratory: Positive: No respiratory distress, No accessory muscle use + CTA throughout no w/r Cardiovascular: RRR nl s1, s2 no m/r CBT <2 sec abd soft + BS nt/nd no guarding, no distension Musculoskeletal Exam: SCHROEDER x 4 without difficulty Strength Intact, ROM Intact Neurological: Positive: Alert, + sensation throughout Psychological: Positive: Normal Response To Family Skin: Positive: Pt with flat, diffuse rash chest, abdomen, back, extremities confluent, red Triage Information Reviewed: Yes Vital Signs: Initial Vital Signs Temp 99.4 F 05/23/18 13:58 Pulse 120 05/23/18 13:58 Resp 18 05/23/18 13:58 BP 128/80 05/23/18 13:58 Pulse Ox 98 05/23/18 13:58 Allergic Reaction Course/Dx - Course Course Of Treatment: Patient presents with red diffuse rash chest abdomen back. Patient states she was treated for allergic reaction to chest, abdomen, back, legs. Patient states she feels some tingling in her mouth. Patient denies any shortness of breath. No wheezing. Patient was treated for this allergic reaction in the middle of the night with IV steroids prednisone and Benadryl. Patient states she had some mild improvement. Patient states and she's been home she feels the symptoms are worsened. Patient did medicate with 75 mg of Benadryl, 40 mg of Pepcid, 40 mg of prednisone less than 90 minutes prior to arrival. Clinically I am suspicious that this is not a drug rash versus acute allergic reaction. However, patient reports some intraoral tingling. Patient currently has no concerns for airway compromise. We'll continue to monitor very very closely. Will give the patient IV with fluids. Will give 60 mg of Solu-Medrol. Will have Epi at the bedside but will not at this point. We'll transfer patient by EMS to the emergency department. Spoke to Dr. Wu in the emergency department who is accepting patient and in agreement with plan. - Differential Dx/Diagnosis Provider Diagnoses: rash. possible allergic reaction Discharge - Sign-Out/Discharge Documenting (check all that apply): Discharge/Admit/Transfer - Discharge Plan Condition: Fair Disposition: TRANS HIGHER LVL OF CARE FAC Referrals: No Primary Care Phys,NOPCP [Primary Care Provider] - - Billing Disposition and Condition Condition: FAIR Disposition: Trans Higher Lvl of Care Fac
[2018-05-23] MEDS ORDERED: methylPREDNISolone 125 MG* 2 ML VIAL IV ONE (14:16)
[2018-05-23] MEDS ORDERED: NS 0.9% 1000 ML* 1,000 ML IV ONE (14:17)
== END 2018-05-23 14:42 | disposition short-term general hospital (02) ==
LOC: UCEAST 13:45
DX: R21 Rash and other nonspecific skin eruption (principal); R20.2 Paresthesia of skin; F31.9 Bipolar disorder, unspecified; Z88.8 Allergy status to other drugs, medicaments and biological substances; F17.210 Nicotine dependence, cigarettes, uncomplicated
CPT/HCPCS: 96376; 99214; G0463; J2930

== ENCOUNTER 2018-05-23 14:59 | Emergency (ER) | payer OTHER ==
[2018-05-23] MEDS ORDERED: diPHENhydraMINE IV* 50 MG/ML 1 ml VIAL (BENADRYL) SLOW PUSH ONE (15:58)
[2018-05-23] MEDS ORDERED: Famotidine IV* 10 MG/ML 2 ML (20 mg) IV SLOW PU ONE (15:58)
[2018-05-23] MEDS ORDERED: Dexamethasone IV* 8 MG in NS 0.9% 50 ML* 50 ML IVPB SCH (16:00)
[2018-05-23] MEDS ORDERED: Dexamethasone IV* 4 MG/ML 1 ML (4 MG) IV SLOW PU SCH (17:00)
[2018-05-23] MEDS ORDERED: Dexamethasone IV* 4 MG/ML 1 ML (4 MG) IV SLOW PU ONE (17:00)
[2018-05-23] MEDS ORDERED: oxyCODONE/Acetamin 5/325 MG* TAB PO ONE ×2 (17:17→23:05)
[2018-05-23] MEDS ORDERED: hydrOXYzine HCL TAB* 50 MG PO ONE (17:17)
[2018-05-23] MEDS ORDERED: NS 0.9% 1000 ML* 1,000 ML IV ONE (18:42)
[2018-05-23] MEDS ORDERED: EPINEPHrine AMP 1 MG/ML SUBCUT ONE (18:43)
[2018-05-23] MEDS ORDERED: methylPREDNISolone 125 MG* 2 ML VIAL IV ONE (18:58)
[2018-05-23 19:49] LABS: ABS Basophils 0 10^3/ul (0-0.2); ABS Eosinophils 0 10^3/ul (0-0.6); ABS Lymphocytes 0.5 10^3/ul (1.0-4.8); ABS Monocytes 0.2 10^3/ul (0-0.8); ABS Neutrophils 6.9 10^3/ul (1.5-7.7); ABS Nucleated RBC 0 10^3/ul; Eosinophil % 0.1 % (0-6); Hematocrit 41 % (35-47); Hemoglobin 14.1 g/dl (12.0-16.0); Lymphocyte % 6.1 % (25-47); Mean Corpuscular HGB Conc 34 g/dl (31-36); Mean Corpuscular Hemoglobin 31 pg (27-31); Mean Corpuscular Volume 92 fL (80-97); Mean Platelet Volume 9.3 um3 (7.4-10.4); Nucleated Red Blood Cells % 0; Platelet Count 118 10^3/ul (150-450); Red Blood Count 4.49 10^6/ul (4.00-5.40); Red Cell Distribution Width 15 % (10.5-15); White Blood Count 7.6 10^3/ul (3.5-10.8)
[2018-05-23 20:14] LABS: EGFR Non-African American 81.8 (>60)
[2018-05-23] MEDS ORDERED: EPINEPHRINE 1 MG/ML 1 ML VIAL ONE (20:23)
--- NOTE | 2018-05-23 21:28 | ED ---
Thierry Elliott Rebecca, scribed for Carole Portillo MD on 05/23/18 at 2115 . Progress - Progress Note Progress Note: Pt was signed out by Dr. Dumont, pending dispo, awaiting reevaluation. Course/Dx - Course Course Of Treatment: Pt was signed out by Dr. Dumont, pending dispo, awaiting reevaluation. Discussed care of pt with Dr. Goncalves, who accepts for admission. She will be admitted with Dx of rash and urticaria. She understands and agrees. - Diagnoses Provider Diagnoses: Rash, Urticaria - Provider Notifications Discussed Care Of Patient With: Kris Goncalves Time Discussed With Above Provider: 21:12 Instructed by Provider To: Other - Accepts pt for admission. Discharge - Sign-Out/Discharge Documenting (check all that apply): Discharge/Admit/Transfer - Admit, Receiving Sign-Out Receiving patient FROM: Magdiel Dumont - Discharge Plan Condition: Stable Disposition: ADMITTED TO [facility] Referrals: No Primary Care Phys,NOPCP [Primary Care Provider] - The documentation as recorded by the Thierry bowles Rebecca accurately reflects the service I personally performed and the decisions made by , Carole Portillo MD.
[2018-05-23] MEDS ORDERED: Nicotine Inhaler* 10 MG AMP INH ONE (22:09)
[2018-05-23] MEDS ORDERED: Mouth Piece, Nicotine* 1 EACH CARTRIDGE INH PRN (22:09)
[2018-05-23] MEDS ORDERED: Mouth Piece, Nicotine* 1 EACH CARTRIDGE ONE (23:08)
[2018-05-23 23:51] VITALS: BP 126/74
--- NOTE | 2018-05-24 12:10 | ED ---
Patricio Elliott Angela scribed for Magdiel Dumont MD on 05/23/18 at 1607 . Allergic Reaction/Systemic - HPI Summary HPI Summary: This pt is a 22 y/o female presenting to [facility] via EMS from [facility] c/o continued diffuse hives since yesterday night. Pt reports she was started on 25 mg of Lamictal 1.5 weeks ago and recently her dose was increased to 50 mg a day. In addition she was also prescribed Benadryl. She has taken 5 days of Lamictal 50 mg (25 mg twice a day) and yesterday at around 23:00 she began to notice a rash on her chest, which she describes as burning. Her rash then spread diffusely all over her body, described as pruritic. Additionally notes lip swelling. Denies sore inside her mouth, sores inside her tongue, sores in rectum, swelling of the tongue, SOB, difficulty breathing, hoarse voice, wheezing. Pt was seen in the ED last night and was prescribed 40 mg of Pepcid and 40 mg of Prednisone. This morning her hives worsened and went to Urgent Care. She last took Lamictal yesterday at 22:00. She last took prednisone, Pepcid and Benadryl at around noon today. Pt has never had an allergic reaction in the past. She is a current smoker. Pt is also on 300 mg lithium. - History of Current Complaint Time Seen by Provider: 05/23/18 15:38 Hx Obtained From: Patient Hx Last Menstrual Period: states does not get period - on mirena Onset/Duration: Started hours ago, Still Present Timing: Lasting Hours Severity Currently: Severe Pain Intensity: 8 - described as burning Pain Scale Used: 0-10 Numeric Location: Diffuse Character: Pruritus, Pain, Hives Aggravating Factor(s): Nothing Alleviating Factor(s): Nothing Associated Signs And Symptoms: Positive: Rash. Negative: Cough Wheezing, Difficulty Breathing, Hoarseness, Throat Tightening - Allergies/Home Medications Allergies/Adverse Reactions: Allergies Allergy/AdvReac Type Severity Reaction Status Date / Time lamotrigine [From Lamictal] Allergy Severe Hives/Diff. Verified 05/23/18 14:05 Breathing/I tching olanzapine Allergy Agitation Verified 04/11/18 07:28 Home Medications: Home Medications Cyanocobalamin TAB* [Vitamin B12 TAB*] 500 mcg PO DAILY 05/23/18 [History Confirmed 05/23/18] [place] Carbonate TAB* 300 mg PO BID 05/23/18 [History Confirmed 05/23/18] diPHENhydraMINE PO* [Benadryl PO 50 MG CAP*] 50 mg PO Q6H PRN 05/23/18 [History Confirmed 05/23/18] PMH/Surg Hx/FS Hx/Imm Hx Endocrine/Hematology History: Reports: Hx Thyroid Disease - hx of Denies: Hx Anticoagulant Therapy, Hx Diabetes Cardiovascular History: Denies: Hx Hypertension Respiratory History: Denies: Hx Asthma, Hx Chronic Obstructive Pulmonary Disease (COPD) GI History: Denies: Hx Ulcer History: Denies: Hx Dialysis Sensory History: Denies: Hx Deafness Neurological History: Denies: Hx CVA Psychiatric History: Reports: Hx Anxiety, Hx Bipolar Disorder Infectious Disease History: No Infectious Disease History: Denies: Hx Clostridium Difficile, Hx Hepatitis, Hx Human Immunodeficiency Virus (HIV), Hx of Known/Suspected MRSA, Hx Shingles, Hx Tuberculosis, Hx Known/ Suspected VRE, Hx Known/Suspected VRSA, History Other Infectious Disease, Traveled Outside the [place] in Last 30 Days - Family History Known Family History: Positive: Hypertension, Diabetes, Other - glaucoma - Social History Alcohol Use: Occasionally Hx Substance Use: Yes Substance Use Type: Reports: None Hx Tobacco Use: Yes Smoking Status (MU): Heavy Every Day Tobacco Smoker Type: Cigarettes Amount Used/How Often: 1/2 ppd Have You Smoked in the Last Year: Yes Review of Systems Negative: Fever, Chills Negative: Erythema ENT: Other - lip swelling Negative: Sore Throat Negative: Chest Pain Negative: Shortness Of Breath, Cough Negative: Abdominal Pain, Vomiting, Nausea Negative: dysuria, hematuria Negative: Myalgia, Edema Positive: Rash. Negative: Other - sores Neurological: Other - NEG: dizziness All Other Systems Reviewed And Are Negative: Yes Physical Exam - Summary Physical Exam Summary: Constitutional: Well-developed, Well-nourished, Alert. (-) Distressed Skin: Warm, Dry. Diffuse hives. HENT: Normocephalic; Atraumatic. No angioedema. Eyes: Conjunctiva normal Neck: Musculoskeletal ROM normal neck. (-) JVD, (-) Stridor, (-) Tracheal deviation Cardio: Rhythm regular, rate normal, Heart sounds normal; Intact distal pulses; The pedal pulses are 2+ and symmetric. Radial pulses are 2+ and symmetric. (-) Murmur Pulmonary/Chest wall: Effort normal. (-) Respiratory distress, (-) Wheezes, (-) Rales Abd: Soft, (-) Tenderness, (-) Distension, (-) Guarding, (-) Rebound Musculoskeletal: (-) Edema Lymph: (-) Cervical adenopathy Neuro: Alert, Oriented x3 Psych: Mood and affect Normal Triage Information Reviewed: Yes Vital Signs On Initial Exam: Initial Vitals Temp Pulse Resp BP Pulse Ox 99.7 F 91 18 118/78 96 05/23/18 15:38 05/23/18 15:38 05/23/18 15:38 05/23/18 15:38 05/23/18 15:38 Vital Signs Reviewed: Yes Diagnostics - Vital Signs Vital Signs Temp Pulse Resp BP Pulse Ox 05/23/18 15:38 99.7 F 91 18 118/78 96 - Laboratory Lab Results: Lab Results 05/23/18 05/23/18 Range/Units 19:40 19:40 WBC 7.6 (3.5-10.8) 10^3/ul RBC 4.49 (4.00-5.40) 10^6/ul Hgb 14.1 (12.0-16.0) g/dl Hct 41 (35-47) % MCV 92 (80-97) fL MCH 31 (27-31) pg MCHC 34 (31-36) g/dl RDW 15 (10.5-15) % Plt Count 118 L (150-450) 10^3/ul MPV 9.3 (7.4-10.4) um3 Neut % (Auto) 90.7 H (38-83) % Lymph % (Auto) 6.1 L (25-47) % [place] % (Auto) 2.7 (0-7) % Eos % (Auto) 0.1 (0-6) % Baso % (Auto) 0.4 (0-2) % Absolute Neuts (auto) 6.9 (1.5-7.7) 10^3/ul Absolute Lymphs (auto) 0.5 L (1.0-4.8) 10^3/ul Absolute Monos (auto) 0.2 (0-0.8) 10^3/ul Absolute Eos (auto) 0 (0-0.6) 10^3/ul Absolute Basos (auto) 0 (0-0.2) 10^3/ul Absolute Nucleated RBC 0 10^3/ul Nucleated RBC % 0 ESR 11 (0-14) mm/Hr Sodium 137 (135-145) mmol/L Potassium 4.3 (3.5-5.0) mmol/L Chloride 105 (101-111) mmol/L Carbon Dioxide 25 (22-32) mmol/L Anion Gap 7 (2-11) mmol/L BUN 10 (6-24) mg/dL Creatinine 0.86 (0.51-0.95) mg/dL Est GFR ( Amer) 98.9 (>60) Est GFR (Non-Af Amer) 81.8 (>60) BUN/Creatinine Ratio 11.6 (8-20) Glucose 129 H (70-100) mg/dL Calcium 9.6 (8.6-10.3) mg/dL Total Bilirubin 0.40 (0.2-1.0) mg/dL AST 16 (13-39) U/L ALT 12 (7-52) U/L Alkaline Phosphatase 51 (34-104) U/L C-Reactive Protein 10.66 H (<8.01) mg/L Total Protein 7.3 (6.4-8.9) g/dL Albumin 4.2 (3.2-5.2) g/dL Globulin 3.1 (2-4) g/dL Albumin/Globulin Ratio 1.4 (1-3) Result Diagrams: 05/23/18 19:40 05/23/18 19:40 Lab Statement: Any lab studies that have been ordered have been reviewed, and results considered in the medical decision making process. Allergic Reaction Course/Dx - Course Assessment/Plan: Pt is a 22 y/o female who presents with continued diffuse hives since yesterday night. Pt reports she was started on 25 mg of Lamictal 1.5 weeks ago and recently her dose was increased to 50 mg a day. In addition she was also prescribed Benadryl. She has taken 5 days of Lamictal 50 mg (25 mg twice a day) and yesterday at around 23:00 she began to notice a rash on her chest, which she describes as burning. Her rash then spread diffusely all over her body, described as pruritic. Additionally notes lip swelling. Denies sore inside her mouth, sores inside her tongue, sores in rectum, swelling of the tongue, SOB, difficulty breathing, hoarse voice, wheezing. In the ED course the pt was given Decadron, Benadryl, Pepcid, Atarax, Pecocet. I suspect drug eruption. There is no evidence of Nicholson-John Syndrome. Pt will be signed out to Dr. Portillo, pending disposition, awaiting re-evaluation after medications. Pt should discontinue Lamictal. - Diagnoses Provider Diagnoses: Drug eruption Discharge - Sign-Out/Discharge Documenting (check all that apply): Sign-Out Patient Signing out patient TO: Carole Portillo - pending dispo, awaiting re-eval. - Discharge Plan Condition: Stable Referrals: No Primary Care Phys,NOPCP [Primary Care Provider] - The documentation as recorded by the Patricio bowles Angela accurately reflects the service I personally performed and the decisions made by me, Magdiel Dumont MD.
--- NOTE | 2018-05-28 23:16 | ED ---
Thierry Elliott Rebecca, scribed for Carole Potrillo MD on 05/23/18 at 2304 . Progress - Progress Note Progress Note: Dr. Goncalves, the hospitalist, has concerns that there is no hematology services in the hospitalist and concerned about accepting the pt without hematology. He recommended transfer to another hospitalist. This was explained to the pt who agrees to be transferred to [facility] in [place]. The pt was accepted by the hospitalist, Dr. Gamble at 2240 to medical services to get a hematology consult in the morning. Course/Dx - Course Course Of Treatment: Dr. Goncalves, the hospitalist, has concerns that there is no hematology services in the hospitalist and concerned about accepting the pt without hematology. He recommended transfer to another hospitalist. This was explained to the pt who agrees to be transferred to [facility] in [place]. The pt was accepted by the hospitalist, Dr. Gamble at 2240 to medical services to get a hematology consult in the morning. Awaiting bed availability. Dx of allergic reaction to Lamictal. - Diagnoses Provider Diagnoses: Allergic reaction caused by a drug - Provider Notifications Discussed Care Of Patient With: [facility] Transfer Time Discussed With Above Provider: 21:50 - Initial call out to [facility] Instructed by Provider To: Other - Accapted by Dr. Gamble at 2240 for transfer. Discharge - Sign-Out/Discharge Documenting (check all that apply): Discharge/Admit/Transfer - Transfer, Post- Discharge Follow Up - After admission had been accepted - Discharge Plan Condition: Stable Disposition: TRANS HIGHER LVL OF CARE FAC Referrals: No Primary Care Phys,NOPCP [Primary Care Provider] - The documentation as recorded by the Thierry bowles Rebecca accurately reflects the service I personally performed and the decisions made by Lindsey weldon Abdul, MD.
== END 2018-05-24 00:28 | disposition short-term general hospital (02) ==
LOC: ED 14:59
DX: L27.0 Generalized skin eruption due to drugs and medicaments taken internally (principal); T42.6X5A Adverse effect of other antiepileptic and sedative-hypnotic drugs, initial encounter; Y92.9 Unspecified place or not applicable; F41.9 Anxiety disorder, unspecified; F31.9 Bipolar disorder, unspecified; F17.210 Nicotine dependence, cigarettes, uncomplicated; Z79.899 Other long term (current) drug therapy; Z88.8 Allergy status to other drugs, medicaments and biological substances
CPT/HCPCS: 36415; 80053; 85025; 85652; 86140; 96374; 96375; 99285; A9270-GY; J0171; J1100; J1200; J2930

== ENCOUNTER 2018-08-23 08:01 | Emergency (ER) | payer OTHER ==
--- NOTE | 2018-08-23 08:15 | UC ---
Abdominal Pain Female HPI - HPI Summary HPI Summary: This pt is a 22 y/o female presenting to [facility] c/o left lower quadrant abd and left flank pain. She reports her pain began yesterday. Pt denies vaginal discharge or bleeding. Pt rates her pain 6 to 7 out of 10 in severity. Denies fever, nausea, vomiting, diarrhea, constipation. She states she has a IUD and believes it might be out of place. LMP: no menstrual cycles as she is on Mirena IUD. - History of Current Complaint Stated Complaint: ABD/BACK PAIN Time Seen by Provider: 08/23/18 08:07 Hx Obtained From: Patient Hx Last Menstrual Period: states does not get period - on mirena Onset/Duration: Lasting Days - 1, Still Present Timing: Constant Severity Currently: Moderate Pain Intensity: 7 Pain Scale Used: 0-10 Numeric Location: Discrete At: LLQ Radiates: No Aggravating Factor(s): Nothing Alleviating Factor(s): Nothing Associated Signs and Symptoms: Positive: Other: - POS: left flank pain. Negative: Fever, Constipation, Vaginal Bleeding, Vaginal Discharge, Nausea, Vomiting, Diarrhea Allergies/Adverse Reactions: Allergies Allergy/AdvReac Type Severity Reaction Status Date / Time lamotrigine [From Lamictal] Allergy Severe Hives/Diff. Verified 08/23/18 08:15 Breathing/I tching olanzapine Allergy Agitation Verified 08/23/18 08:15 Home Medications: Home Medications Dextroamphetamine/Amphetamine [Adderall 20 mg Tablet] 20 mg PO DAILY 08/23/18 [ History Confirmed 08/23/18] PMH/Surg Hx/FS Hx/Imm Hx Other Endocrine History: DENIES: diabetes Other Cardiovascular History: DENIES: HTN Other History Of: Negative For: Anticoagulant Therapy - Surgical History Surgical History: None - Family History Known Family History: Positive: Hypertension, Diabetes, Other - glaucoma - Social History Alcohol Use: Occasionally Substance Use Type: None Smoking Status (MU): Heavy Every Day Tobacco Smoker Type: Cigarettes Amount Used/How Often: 1/2 ppd Have You Smoked in the Last Year: Yes Household Exposure Type: Cigarettes Review of Systems Constitutional: Negative Skin: Negative Eyes: Negative ENT: Negative Respiratory: Negative Cardiovascular: Negative Gastrointestinal: Abdominal Pain, Other - NEG: nausea, vomiting, diarrhea Genitourinary: Other - POS: Left flank tenderness. NEG: vaginal discharge, vaginal bleeding Motor: Negative Neurovascular: Negative Musculoskeletal: Negative Neurological: Negative Psychological: Negative Is Patient Immunocompromised?: No All Other Systems Reviewed And Are Negative: Yes Physical Exam - Summary Physical Exam Summary: VITAL SIGNS: Reviewed. GENERAL: Patient is a well-developed and nourished female who is lying comfortable in the stretcher. Patient is not in any acute respiratory distress. HEAD AND FACE: Normocephalic EYES: PERRLA, EOMI x 2. EARS: Hearing grossly intact. MOUTH: Oropharynx within normal limits. NECK: Supple, trachea is midline, no adenopathy, no JVD, no carotid bruit. CHEST: Symmetric, no tenderness at palpation LUNGS: Clear to auscultation bilaterally. No wheezing or crackles. CVS: Regular rate and rhythm, S1 and S2 present, no murmurs or gallops appreciated. ABDOMEN: Soft, left lower quadrant tenderness. Bowel sounds are normal. No abdominal abnormal pulsations. Left costovertebral tenderness. Positive left pelvic tenderness. EXTREMITIES: Full ROM in all major joints, no edema, no cyanosis or clubbing. NEURO: Alert and oriented x 3. No acute neurological deficits. Speech is normal and follows commands. SKIN: Dry and warm Triage Information Reviewed: Yes Vital Signs: Initial Vitals Temp Pulse Resp BP Pulse Ox 98.6 F 91 16 89/67 99 08/23/18 08:17 08/23/18 08:17 08/23/18 08:17 08/23/18 08:17 08/23/18 08:17 Vital Signs Reviewed: Yes Diagnostics - Laboratory Diagnostic Studies Completed/Ordered: US Transvaginal , as read by radiologist. IMPRESSION: 1. An IUD is noted centrally within the endometrial cavity towards the fundus. 2. Prominence of the vasculature along the broad ligament is bilaterally. While nonspecific, this can be associated with pelvic congestion syndrome in the correct clinical setting. 3. No sonographic features of torsion. Please note that partial or intermittent torsion may be sonographically normal. Dr. Lund has reviewed this report. Abd Pain Female Course/Dx - Course Course Of Treatment: Pt is a 22 y/o female presenting to [facility] c/o left lower quadrant abd and left flank pain. She reports her pain began yesterday. Pt denies vaginal discharge or bleeding. Pt rates her pain 6 to 7 out of 10 in severity. Denies fever, nausea, vomiting, diarrhea, constipation. She states she has a IUD and believes it might be out of place. Pelvic ultrasound without any significant abnormality. The patient continues to have left flank pain and left lower quadrant pain, therefore we need to rule out kidney stone versus diverticulitis. Therefore the patient will be sent to the emergency room for further workup and management. Patient declined ambulance transport. The patient is hemodynamically stable alert and oriented 3. She reports that her grandfather will be driving her to the emergency department. Patient declined a pelvic exam. - Differential Dx/Diagnosis Provider Diagnoses: Left flank pain. LLQ abdominal pain Discharge - Sign-Out/Discharge Documenting (check all that apply): Patient Departure - Discharge with recommendation to go to ED All imaging exams completed and their final reports reviewed: Yes - Discharge Plan Condition: Stable Disposition: HOME-RECOMMEND TO ED Prescriptions: Ciprofloxacin TAB* [Cipro 250 MG Tab*] 250 mg PO BID #6 tab Patient Education Materials: Abdominal Pain (ED), Flank Pain (ED) Referrals: [facility] [place] PHYSICIAN REFERRAL [Outside] Additional Instructions: The patient will be discharged to the emergency department for further workup and management. Patient declined ambulance transport. - Billing Disposition and Condition Condition: STABLE Disposition: Home-Recommend to ED - Attestation Statements Document Initiated by Scribe: Yes Documenting Scribe: Silvia Curry Provider For Whom Pato is Documenting (Include Credential): Les Lund MD Scribe Attestation: Silvia Elliott scribed for Les Lund MD on 08/23/18 at 0933. Scribe Documentation Reviewed: Yes Provider Attestation: The documentation as recorded by the Silvia bowles accurately reflects the service I personally performed and the decisions made by me, Les Lund MD
[2018-08-23 08:24] VITALS: BP 89/67
--- NOTE | 2018-08-23 09:11 | RAD ---
HISTORY: left pelvic pain COMPARISONS: None TECHNIQUE: Multiple transverse and longitudinal ultrasound images were obtained of the pelvis using grayscale, color Doppler, and spectral Doppler imaging using the endovaginal transducer. FINDINGS: UTERUS: The uterus measures 9.9 x 3.9 x 4.4 cm. The uterus is normal in shape, size, contour, and echotexture. There is prominence of the vasculature along the broad ligaments bilaterally, with 0.1 cm increased caliber with Valsalva bilaterally. ENDOMETRIUM: The endometrial stripe is smooth. The endometrium measures 0.6 cm in thickness. An IUD is noted centrally within the endometrial cavity towards the fundus. CUL-DE-SAC: There is no free fluid within the cul-de-sac. RIGHT OVARY: The right ovary measures 2.9 x 1.4 x 2.4 cm. Multiple follicles are noted. Normal arterial and venous waveforms are identifiable within the ovary on spectral Doppler imaging. LEFT OVARY: The left ovary measures 2.9 x 2.1 x 3.8 cm. Normal arterial and venous waveforms are identifiable within the ovary on spectral Doppler imaging. Multiple follicles are noted, measuring up to 2 cm. BLADDER: The bladder is not well visualized. OTHER: None IMPRESSION: 1. AN IUD IS NOTED CENTRALLY WITHIN THE ENDOMETRIAL CAVITY TOWARDS THE FUNDUS.. 2. PROMINENCE OF THE VASCULATURE ALONG THE BROAD LIGAMENTS BILATERALLY. WHILE NONSPECIFIC, THIS CAN BE ASSOCIATED WITH PELVIC CONGESTION SYNDROME IN THE CORRECT CLINICAL SETTING. 3. NO SONOGRAPHIC FEATURES OF TORSION. PLEASE NOTE THAT PARTIAL OR INTERMITTENT TORSION MAY BE SONOGRAPHICALLY NORMAL.
== END 2018-08-23 09:29 | disposition home health service (06) ==
LOC: UCEAST 08:01
DX: R10.32 Left lower quadrant pain (principal); M54.5 Low back pain; Z97.5 Presence of (intrauterine) contraceptive device; Z88.8 Allergy status to other drugs, medicaments and biological substances; F17.210 Nicotine dependence, cigarettes, uncomplicated
CPT/HCPCS: 76830; 81003; 84702; 87077; 87086; 99212; G0463

== ENCOUNTER 2018-09-20 19:24 | Emergency (ER) | payer OTHER ==
[2018-09-20 19:36] VITALS: BP 108/70
--- NOTE | 2018-09-20 20:45 | UC ---
Respiratory Complaint HPI - HPI Summary HPI Summary: 3 WEEKS OF PERSISTENT SORE THROAT AND COUGH. HAS MILD NASAL CONGESTION. NO FEVER, NAUSEA/VOMITING. IS A SMOKER. STATES SHE WAS HOPING FOR AN INHALER. - History of Current Complaint Chief Complaint: UCRespiratory Stated Complaint: SORE THROAT,COUGH Time Seen by Provider: 09/20/18 20:33 Hx Obtained From: Patient Hx Last Menstrual Period: IUD Onset/Duration: Gradual Onset, Lasting Weeks, Still Present Timing: Constant Severity Initially: Moderate Severity Currently: Moderate Pain Intensity: 3 Pain Scale Used: 0-10 Numeric Character: Cough: Nonproductive Aggravating Factors: Nothing Alleviating Factors: Nothing Associated Signs And Symptoms: Positive: URI, Nasal Congestion. Negative: Dyspnea, Fever, Wheezing - Allergies/Home Medications Allergies/Adverse Reactions: Allergies Allergy/AdvReac Type Severity Reaction Status Date / Time lamotrigine [From Lamictal] Allergy Severe Hives/Diff. Verified 09/20/18 19:37 Breathing/I tching olanzapine Allergy Agitation Verified 09/20/18 19:37 PMH/Surg Hx/FS Hx/Imm Hx Psychological History: Bipolar Disorder Other History Of: Negative For: Anticoagulant Therapy - Surgical History Surgical History: None - Family History Known Family History: Positive: Hypertension, Diabetes, Other - glaucoma - Social History Alcohol Use: Occasionally Substance Use Type: None Smoking Status (MU): Heavy Every Day Tobacco Smoker Type: Cigarettes Amount Used/How Often: 1/2 ppd Have You Smoked in the Last Year: Yes Household Exposure Type: Cigarettes Review of Systems Constitutional: Fatigue ENT: Sore Throat, Nasal Discharge Respiratory: Cough Cardiovascular: Negative Gastrointestinal: Negative All Other Systems Reviewed And Are Negative: Yes Physical Exam Triage Information Reviewed: Yes Appearance: Well-Appearing, No Pain Distress, Well-Nourished Vital Signs: Initial Vital Signs Temp 96.9 F 09/20/18 19:34 Pulse 70 09/20/18 19:34 Resp 18 09/20/18 19:34 BP 108/70 09/20/18 19:34 Pulse Ox 100 09/20/18 19:34 Vital Signs Reviewed: Yes Eyes: Positive: Conjunctiva Clear ENT: Positive: Hearing grossly normal, Pharynx normal, TMs normal Neck: Positive: Supple, Nontender, No Lymphadenopathy Respiratory Exam: Normal Cardiovascular Exam: Normal Abdomen Description: Positive: Soft Musculoskeletal: Positive: No Edema Neurological: Positive: Alert Psychological: Positive: Age Appropriate Behavior Skin: Negative: rashes UC Diagnostic Evaluation - Laboratory O2 Sat by Pulse Oximetry: 100 Respiratory Course/Dx - Differential Dx/Diagnosis Provider Diagnoses: ACUTE BRONCHITIS Discharge - Sign-Out/Discharge Documenting (check all that apply): Patient Departure All imaging exams completed and their final reports reviewed: No Studies - Discharge Plan Condition: Stable Disposition: HOME Prescriptions: Albuterol HFA INHALER* [Ventolin HFA Inhaler*] 2 puff INH Q4H PRN #1 mdi PRN Reason: Shortness Of Breath Benzonatate CAP* [Tessalon CAP*] 1 - 2 cap PO TID PRN #30 cap PRN Reason: Cough predniSONE TAB* [Deltasone 20 MG TAB*] 40 mg PO DAILY #10 tab Patient Education Materials: Acute Bronchitis (ED) Referrals: No Primary Care Phys,NOPCP [Primary Care Provider] - Additional Instructions: YOUR SYMPTOMS ARE LIKELY VIRALLY MEDIATED AND SHOULD RESOLVE ON THEIR OWN WITH TIME. NO INDICATION FOR ANTIBIOTICS AT PRESENT. REST, HYDRATE, OTC MEDS NEEDED. WILL TREAT WITH PREDNISONE AND ALBUTEROL TO HELP WITH AIRWAY INFLAMMATION AND COUGH MEDICINE. SEEK FOLLOW-UP IF YOU ARE NOT IMPROVING OVER THE NEXT 1-2 WEEKS. YOU MAY BENEFIT FROM ANTIBIOTICS AT THAT TIME. CALL THE NUMBER BELOW FOR ASSISTANCE IN ESTABLISHING WITH A PCP An additional resource available to assist in finding the appropriate physician for your health care needs is the [facility] ([facility]). You may contact them by calling [phone] - Billing Disposition and Condition Condition: STABLE Disposition: Home
== END 2018-09-20 20:45 | disposition home or self-care (01) ==
LOC: UCEAST 19:24
DX: J20.9 Acute bronchitis, unspecified (principal); F17.210 Nicotine dependence, cigarettes, uncomplicated; Z88.8 Allergy status to other drugs, medicaments and biological substances
CPT/HCPCS: 99212; G0463

== ENCOUNTER 2019-06-02 16:26 | Emergency (ER) | payer SELFPAY ==
--- NOTE | 2019-06-02 16:36 | UC ---
Laceration HPI - HPI Summary HPI Summary: 23 yo female presents with RIGHT wrist laceration. She tells me that around 0200 this morning she went to close a glass door with her backhand and her hand went through the glass. She sustained a laceration to the ulnar aspect of her right wrist. She applied a bandaged and was not able to have the wound evaluated until now. Unsure date of last tetanus. - History Of Current Complaint Stated Complaint: ARM LACERATION Time Seen by Provider: 06/02/19 16:36 Hx Obtained From: Patient Hx Last Menstrual Period: IUD Laceration Location: Wrist Mechanism Of Injury: Sharp Trauma Onset/Duration: Sudden Onset Severity: Mild Pain Intensity: 3 Pain Scale Used: 0-10 Numeric - Allergies/Home Medications Allergies/Adverse Reactions: Allergies Allergy/AdvReac Type Severity Reaction Status Date / Time lamotrigine [From Lamictal] Allergy Severe Hives/Diff. Verified 06/02/19 16:38 Breathing/I tching olanzapine Allergy Agitation Verified 06/02/19 16:38 PMH/Surg Hx/FS Hx/Imm Hx - Additional Past Medical History Additional PMH: ADHD Bipolar Other History Of: Negative For: Anticoagulant Therapy - Surgical History Surgical History: None - Family History Known Family History: Positive: Hypertension, Diabetes, Other - glaucoma - Social History Lives: With Family Alcohol Use: Occasionally Substance Use Type: None Smoking Status (MU): Heavy Every Day Tobacco Smoker Type: Cigarettes Amount Used/How Often: 1/2 ppd Have You Smoked in the Last Year: Yes Household Exposure Type: Cigarettes Review of Systems All Other Systems Reviewed And Are Negative: Yes Constitutional: Positive: Negative Skin: Positive: Other - Right wrist laceration Respiratory: Positive: Negative Cardiovascular: Positive: Negative Neurovascular: Positive: Negative Neurological: Positive: Negative Psychological: Positive: Negative Physical Exam - Summary Physical Exam Summary: GENERAL: NAD. WDWN. No pain distress. SKIN: RIGHT WRIST: 2.3cm laceration just through the epidermis at the ulnar aspect at the wrist crease. Appears clean and without FB. No tendon or large vessel involvement. CHEST: No accessory muscle use. Breathing comfortably and in no distress. CV: Pulses intact. Cap refill <2seconds NEURO: Alert. PSYCH: Age appropriate behavior. Triage Information Reviewed: Yes Vital Signs: Vital Signs: Temp Pulse Resp BP Pulse Ox 99.0 F 72 18 119/73 100 06/02/19 16:35 06/02/19 16:35 06/02/19 16:35 06/02/19 16:35 06/02/19 16:35 Vital Signs Reviewed: Yes Laceration Repair - Laceration Repair 1 Description: Linear Laceration Size After Repair: Length (cm) - 2.3 Modified For Repair: No Anesthesia Used: 2.0% Lido Irrigation With Pressure Irrigation Device: Yes Closure Material: Sutures - #4 Closure Method: Single Layer Suture Of: Skin Suture Type: Prolene - 5-0 Laceration Course/Dx - Course/Dx Course Of Treatment: Placement, angle, and depth of laceration do not appear suspicious for self infliction. She denies SI/HI or wanting to hurt herself The procedure was explained to the pt and all questions were answered. A time out was performed, witnessed, and signed. The area was irrigated with 200mL sterile saline. 1mL of 2% lidocaine without epi was administered and good anesthetization was achieved. In the usual sterile fashion, FOUR 5-0 prolene interrupted sutures were placed. The wound was bandaged with telfa . Pt tolerated procedure well. tdap updated today - Diagnosis Provider Diagnosis: Laceration of right wrist Discharge - Sign-Out/Discharge Documenting (check all that apply): Patient Departure All imaging exams completed and their final reports reviewed: No Studies - Discharge Plan Condition: Stable Disposition: HOME Patient Education Materials: Care For Your Stitches (ED), Laceration (DC) Referrals: No Primary Care Phys,NOPCP [Primary Care Provider] - Additional Instructions: If you develop a fever, shortness of breath, chest pain, new or worsening symptoms - please call your PCP or go to the ED immediately. 1) Please keep the area bandaged, clean, dry, and intact for the next 24- 48hours and then keep covered daily with a bandaged until sutures are removed. 2) If you develop a fever, colored or thick discharge, increased pain or swelling - please call your PCP or return for a wound check. 3) Please return in 8-10 days to have your FOUR sutures removed. - Billing Disposition and Condition Condition: STABLE Disposition: Home
[2019-06-02 16:38] VITALS: BP 119/73
[2019-06-02] MEDS ORDERED: Tetan/Diph/Pertus SYR(Tdap)* 0.5 ML SYR(BOOSTRIX) use SYR IM ONE (16:41)
[2019-06-02] MEDS ORDERED: Lidocaine 2% PF * 5 ML VIAL INJ ONE (16:47)
== END 2019-06-02 17:18 | disposition home or self-care (01) ==
LOC: UCEAST 16:26
DX: S61.511A Laceration without foreign body of right wrist, initial encounter (principal); W25.XXXA Contact with sharp glass, initial encounter; Y92.9 Unspecified place or not applicable
CPT/HCPCS: 90715; 99211; G0463

== ENCOUNTER 2019-07-31 18:26 | Emergency (ER) | payer SELFPAY ==
[2019-07-31 18:40] VITALS: BP 109/74
== END 2019-07-31 19:30 | disposition left against medical advice (07) ==
LOC: UCEAST 18:26
DX: A64 Unspecified sexually transmitted disease (principal); Z53.21 Procedure and treatment not carried out due to patient leaving prior to being seen by health care provider

== ENCOUNTER 2019-07-31 20:17 | Emergency (ER) | payer SELFPAY ==
[2019-07-31 20:24] VITALS: BP 110/71
--- NOTE | 2019-07-31 20:55 | UC ---
Complaint Female HPI - HPI Summary HPI Summary: 23-year-old female presents to urgent care requesting screening for sexually transmitted infections. States she had unprotected sex with a new partner 3 or 4 days ago. Patient has Mirena IUD and does not get her menses. Denies fever, chills, abdominal pain, dyspareunia, vaginal discharge, genital lesions, or abnormal bleeding. - History Of Current Complaint Chief Complaint: UCGU Stated Complaint: STD TESTING Time Seen by Provider: 07/31/19 20:53 Hx Obtained From: Patient Hx Last Menstrual Period: iud Pain Intensity: 0 - Allergies/Home Medications Allergies/Adverse Reactions: Allergies Allergy/AdvReac Type Severity Reaction Status Date / Time lamotrigine [From Lamictal] Allergy Severe Hives/Diff. Verified 07/31/19 20:20 Breathing/I tching olanzapine Allergy Agitation Verified 07/31/19 20:20 PMH/Surg Hx/FS Hx/Imm Hx Previously Healthy: Yes Psychological History: Bipolar Disorder, Other - ADHD Other History Of: Negative For: Anticoagulant Therapy - Surgical History Surgical History: None - Family History Known Family History: Positive: Hypertension, Diabetes, Other - glaucoma - Social History Occupation: Employed Full-time Lives: With Family Alcohol Use: Occasionally Substance Use Type: None Smoking Status (MU): Heavy Every Day Tobacco Smoker Type: Cigarettes Amount Used/How Often: 1/2 ppd Have You Smoked in the Last Year: Yes Household Exposure Type: Cigarettes Review of Systems All Other Systems Reviewed And Are Negative: Yes Constitutional: Negative: Fever, Chills Respiratory: Positive: Negative Cardiovascular: Positive: Negative Gastrointestinal: Negative: Abdominal Pain, Vomiting, Diarrhea, Nausea Genitourinary: Negative: Dysuria, Hematuria, Frequency, Urgency, Vaginal/Penile Discharge, Ulceration/Lesion, Abnormal Bleeding Musculoskeletal: Positive: Negative Neurological: Positive: Negative Is Patient Immunocompromised?: No Physical Exam - Summary Physical Exam Summary: GENERAL APPEARANCE: Well developed, well nourished, alert and cooperative, and appears to be in no acute distress. CARDIAC: Normal S1 and S2. No S3, S4 or murmurs. Rhythm is regular. There is no peripheral edema, cyanosis or pallor. Extremities are warm and well perfused. Capillary refill is less than 2 seconds. Peripheral pulses intact. LUNGS: Clear to auscultation without rales, rhonchi, wheezing or diminished breath sounds. ABDOMEN: Positive bowel sounds. Soft, nondistended, nontender. No guarding or rebound. No masses or hepatosplenomegally. No CVA tenderness. GENITOURINARY: Pelvic deferred by patient. MUSKULOSKELETAL: ROM intact to all extremities. No joint erythema or tenderness. Normal muscular development. Normal gait. SKIN: Skin normal color, texture and turgor with no lesions or eruptions. Triage Information Reviewed: Yes Vital Signs: Initial Vital Signs Temp 98.1 F 07/31/19 20:21 Pulse 100 07/31/19 20:21 Resp 20 07/31/19 20:21 BP 110/71 07/31/19 20:21 Pulse Ox 100 07/31/19 20:21 Vital Signs Reviewed: Yes Complaint Female Dx - Course Course Of Treatment: 23-year-old female presents to urgent care requesting screening for sexually transmitted infections. States she had unprotected sex with a new partner 3 or 4 days ago. Patient has Mirena IUD and does not get her menses. Denies fever, chills, abdominal pain, dyspareunia, vaginal discharge, genital lesions, or abnormal bleeding. Afebrile. Vital signs stable. Patient had an unremarkable exam. Pelvic was deferred by the patient. I discussed at length seek sex practices as well as need for follow-up testing should her results being negative. She is to return here or follow up with primary care with any concerns. Anticipatory guidance and warning symptoms were reviewed with the patient. Verbalizes understanding and agrees with plan of care. - Differential Dx/Diagnosis Differential Diagnosis/HQI/PQRI: Pelvic Inflammatory Disease, Sexually Transmitted Disease, Urinary Tract Infection Provider Diagnosis: Routine screening for STI (sexually transmitted infection) Discharge ED - Sign-Out/Discharge Documenting (check all that apply): Patient Departure All imaging exams completed and their final reports reviewed: No Studies - Discharge Plan Condition: Stable Disposition: HOME Patient Education Materials: Sexually Transmitted Diseases (ED), Safe Sex (ED) Referrals: No Primary Care Phys,NOPCP [Primary Care Provider] - Additional Instructions: We have collected specimens to test for gonorrhea, chlamydia, and HV as you have requested. You have declined testing for other sexually transmitted infections at this time. We will contact you if you test positive and will start you on appropriate treatment at that time. Abstinence from sexual intercourse is the only way to effectively prevent exposure to sexually transmitted infections. If you are going to be sexually active it is important that you use condoms consistently to reduce your risk of emmanuel a sexually transmitted infection. If your test are negative is recommended that your have screening performed again in 3 months. Sooner if you become symptomatic. Return here or follow up with your primary care for any concerns. Seek immediate medical attention if you develop any fever, chills, abdominal pain, pain with intercourse, vaginal discharge, abnormal bleeding, or any concerning symptoms. - Billing Disposition and Condition Condition: STABLE Disposition: Home - Attestation Statements Provider Attestation: Per institutional requirements, I have reviewed the chart, however, I was not consulted specifically or made aware of this patient by the midlevel provider. I did not personally evaluate, interact with , or disposition this patient.
[2019-08-01 13:29] LABS: HIV 4th Generation Nonreactive (Nonreactive)
[2019-08-02 12:10] LABS: Chlamydia trachomatis NAA Negative (Negative); Neisseria gonorrhoeae (GC) NAA Negative (Negative)
== END 2019-07-31 21:10 | disposition home or self-care (01) ==
LOC: UCEAST 20:17
DX: Z11.3 Encounter for screening for infections with a predominantly sexual mode of transmission (principal); F17.210 Nicotine dependence, cigarettes, uncomplicated
CPT/HCPCS: 36415; 87389; 87491; 87591; 99211; G0463

== ENCOUNTER 2019-12-01 00:08 | Emergency (ER) | payer SELFPAY ==
--- OUTSIDE RECORDS SUMMARY | 2019-12-01 00:25 | XMS REPORT | Continuity of Care Document ---
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 Medications Medication Instructions Dosage Effective Dates Status Comments (start - stop) MIRENA (unknown Not Available - Active strength) LITHIUM CARBONATE Not Available - Active (unknown strength) ADDERALL (unknown Not Available - Active strength) LATUDA (unknown Not Available - No Longer strength) Active Problems Condition Effective Dates (start - Clinical Status Comments stop) Human immunodeficiency virus [HIV] - counseling Encounter for screening for human - immunodeficiency virus Encntr screen for infections w sexl mode of transmiss Human immunodeficiency virus [HIV] - counseling Low grade intrepith lesion cyto smr crvx (LGSIL) Encounter for test, result negative Human immunodeficiency virus [HIV] - counseling Encounter for screening for human - immunodeficiency virus Encntr screen for infections w sexl mode of transmiss Encounter for routine checking of intrauterine contracep dev Encounter for screening for malignant neoplasm of cervix Human immunodeficiency virus [HIV] - counseling Encntr for director mission exam (general) (routine) w/o abn findings Encounter for routine checking of intrauterine contracep dev Encntr screen for infections w sexl mode of transmiss Disorder of thyroid, unspecified Encntr screen for dis of the bld/bld-form org/immun [facility] Encounter for screening for human - immunodeficiency virus Anxiety disorder, unspecified Postcoital and contact bleeding Acute vaginitis Procedures Procedure Date PREVENTIVE COUNSELING, 8-14 Minutes HIV-1/HIV-2, SINGLE ASSAY N.GONORRHOEAE, DNA, AMP PROB CHYLMD DNA, AMP PROBE N.GONORRHOEAE, DNA, PHARYNGEAL CHYLMD, DNA, PHARYNGEAL OTHER Medical Services Contraceptive Speech And Language Tutor.Svc. Other Speech And Language Tutor.Svc. STI [facility] SCREENING - CLINICIAN OFFICE/OUTPATIENT VISIT, EST Results Test Name Date and Time Measure Units Reference Range Abnormal Flag Status Comments No information Advance Directives Directive Yes / No Effective Date File Name No information Encounters Encounter Practice Location Reason(s) Diagnoses Date Provider Providers Description For Visit Copied on Encounter [facility]VENTIVE [facility] Human [facility] White Referring COUNSELING, [facility] [place] Testing No immunodeficiency 7 Zaida. Provider: 8-14 Minutes Southern Symptoms virus [HIV] 9 [address] (F) (chief counselingEncounter Mikie Herrera, 620 [facility], [address] complaint) for screening for St, [address] human [place], St, [place], [place], [place], [place], virusEncntr screen [address], [place], [address]. [id number], for infections w [place]. [place] sexl mode of tel:[phone] transmiss [phone] [facility] Human Mar-1 Leatha Referring [facility] [place] immunodeficiency 2-201 Angie. Provider: [place] virus [HIV] 9 [address] counselingLow grade Mikie Zhang R, [place], [address], [address] cyto smr crvx [place], [address], [address], [place], (LGSIL) [place], [place], [address]. [place], [address]. [id number], tel:[phone] tel:[phone] tel:[phone] [facility] Encounter for [place] Referring [facility] [place] test, 5-201 Bonita. Provider: [facility] result 9 [address] negativeHuman [address]atinum [place] J, [place], [address], [address] virus [HIV] [place], [address], , [place], counselingEncounter [place], [facility] [place], [place] [address], [place], [address]. [id number], human [place]. tel:[phone] [place] immunodeficiency tel:[phone] tel:[phone] virusEncntr screen [phone] [id number] for infections w sexl mode of transmissEncounter for routine checking of intrauterine contracep devEncounter for screening for malignant neoplasm of cervix [facility] Human Akshat- Guggino [facility] [place] immunodeficiency 5-201 Rhoda [facility] virus [HIV] 7 . [address] counselingEncntr [address] [facility], [address] (general) (routine) [place], , [place], [place]/o abn [place], findingsEncounter [address], [id number], for routine [place]. [place] checking of tel:[phone] tel:[phone] intrauterine [phone] contracep devEncntr screen for infections w sexl mode of transmissDisorder of thyroid, unspecifiedEncntr screen for dis of the bld/bld-form org/immun mechnsmEncounter for screening for human immunodeficiency virusAnxiety disorder, unspecifiedPostcoit al and contact bleedingAcute vaginitis Family History Family Member Diagnosis Age At Onset No family history of Cancer, ovarian 1st degree relative No hx of venous thromboembolism 1st degree relative No hx of coronary heart disease (female <65, male <55) 1st degree relative No hx of cancer of breast, colon, endometrium or ovary Immunizations Vaccine Date Status Comments No information Payers Payer name Insurance type Covered green party ID Authorization(s) [facility] CI Social History Type Description Quantity Date Captured Comments Alcohol Use Details Unknown Caffeine Use Details Unknown Tobacco Use Status Smoking Status Heavy tobacco smoker Sex Female Vital Signs Date / Height Weight BMI Pulse Blood Temperature Respiratory Body Head BMI Pulse Inhaled Time: Rate Pressure Rate Surface Circumference percentile Ox Ox Area No information Chief Complaint And Reason For Visit Most recent encounter only, dated '10/24/2019 10:40'. STI Testing No Symptoms (F) (chief complaint) Reason For Referral Reason For Referral No information Plan Of Treatment Date Type Action Status Goal Tobacco cessation counseling completed Goal Tobacco cessation counseling completed History Of Present Illness Encounter Date Complaint History Of Present Illness No information Functional Status Date Functional Assessment No information Medications Administered Medication Instructions Dosage Effective Dates (start - stop) Status Comments No information Instructions Date Instruction Additional Information No information Assessments Type Assessment Date assessment Human immunodeficiency virus [HIV] counseling assessment Encounter for screening for human immunodeficiency virus 2018 assessment Encntr screen for infections w sexl mode of transmiss Goals Health Concern Goal Type Priority Status Date No information Medical Equipment Description Device [place] Device Identifier Effective Dates (start - stop ) Status No information Mental Status Date Cognitive Assessment No information Health Concerns Observation Date No information Concern Status Date No information
--- OUTSIDE RECORDS SUMMARY | 2019-12-01 00:25 | XMS REPORT | Continuity of Care Document ---
:1995 Author Organization [facility] Address [address] [place] [address] Phone Care Team Providers Name Role Phone Zaida Herrera NP Unavailable Unavailable Allergies, Adverse Reactions, Alerts Substance Reaction Status lamotrigine Nicholson-John syndrome (severe) Active Medications Medication Instructions Dosage Effective Dates Status Comments (start - stop) MIRENA (unknown Not Available - Active strength) LITHIUM CARBONATE Not Available - Active (unknown strength) ADDERALL (unknown Not Available - Active strength) Problems Condition Effective Dates (start - Clinical [...] immunodeficiency virus [HIV] - counseling Encntr for lens matcher exam (general) (routine) w/o abn findings Encounter for routine checking of intrauterine contracep dev Encntr screen for infections w sexl mode of transmiss Disorder of thyroid, unspecified Encntr screen for dis of the bld/bld-form org/immun mechnsm Encounter for screening for human - immunodeficiency virus Anxiety disorder, unspecified Postcoital and contact bleeding Acute vaginitis Procedures Procedure Date No information Results Test Name Date and Time Measure Units Reference Range Abnormal Flag Status Comments No information Advance Directives Directive Yes / No Effective Date File Name No information Encounters Encounter Practice Location Reason(s) Diagnoses Date Provider Providers Description For Visit Copied on Encounter [facility] [place] 3 Zaida. Southern 9 [address] [place], [address] [place], [place], [place], [address], [id number], [place]. [place] tel:[phone] [facility] Human Nov- White Referring [facility] [place] immunodeficiency Zaida. Provider: [facility] virus [HIV] 9 [address] counselingEncounter [place], [address] [place], [address] human [place], St, St, [place], [place], [place], [place], virusEncntr screen [address], [place], [address]. [id number], for infections w [place]. [place] sexl mode of tel:[phone] transmiss [phone] [facility] Human Mar-1 Leatha Referring [facility] [place] immunodeficiency 2 Angie. Provider: [facility] virus [HIV] 9 [address] counselingLow grade Tribe Leatha R, [facility], [address], [address] cyto smr crvx [place], [address], [place], [place], ([place]) [place], [place], [address]. [place], [address]. [id number], tel:[phone] tel:[phone] tel:[phone] [facility] Encounter for Dec- [place] Referring [facility] [place] test, Bonita. Provider: [facility] result 9 [address] negativeHuman Tribeanjali Segura J, [place], [address], [address] virus [HIV] [place], [address], [address], [place], counselingEncounter [place], [place] [address], [place], [address]. [id number], human [place]. tel:+[phone] [place] immunodeficiency tel: [phone] tel: virusEncntr screen [phone] [id number] for infections w sexl mode of transmissEncounter for routine checking of intrauterine contracep devEncounter for screening for malignant neoplasm of cervix [facility] Guggino [facility] [place] immunodeficiency 5-201 Rhoda [place] virus [HIV] 7 . [address] counselingEncntr [place], [address] (general) (routine) [place], St, [place], w/o abn [place], findingsEncounter [address], [id number], for routine [place]. [place] checking of tel: tel: intrauterine [phone] contracep devEncntr screen for infections w sexl [...] information Payers Payer name Insurance type Covered alliance party ID Authorization(s) [facility] CI Social History Type Description Quantity Date Captured Comments Alcohol Use Details Unknown Caffeine Use Details Unknown Tobacco Use Status Smoking Status Heavy tobacco smoker Sex Female Vital Signs Date / Height Weight BMI Pulse Blood Temperature Respiratory Body Head BMI Pulse Inhaled Time: Rate Pressure Rate Surface Circumference percentile Ox Ox Area No information Chief Complaint And Reason For Visit No information Reason For Referral Reason For Referral No [...] Information No information Assessments Type Assessment Date No information Goals Health Concern Goal Type Priority Status Date No information Medical Equipment Description Device [place] Device Identifier Effective Dates (start - stop ) Status No information Mental Status Date Cognitive Assessment No information Health Concerns Observation Date No information Concern Status Date No information
[2019-12-01] MEDS ORDERED: Benzonatate CAP* 100 MG PO ONE (00:39)
[2019-12-01] MEDS ORDERED: Azithromycin TAB* 250 MG PO ONE (00:39)
--- NOTE | 2019-12-01 00:40 | ED ---
Respiratory - HPI Summary HPI Summary: Patient complains of low-grade fever, dry cough 1 week. Chest pain and nausea with hacking cough. Mild sore throat. Denies ear pain, CORONA, neck stiffness, SOB , V/D, abdominal pain, change in urine, change in BM. Medical history is none. Tylenol 3 hours ago. - History of Current Complaint Chief Complaint: EDRespiratoryDistress Stated Complaint: FEVER PER PT Time Seen by Provider: 12/01/19 00:32 Hx Obtained From: Patient Onset/Duration: Gradual Onset, Lasting Days Timing: Constant Initial Severity: Moderate Current Severity: Moderate Pain Intensity: 5 Character: Cough (Nonproductive) Sputum Amount: None Aggravating Factor(s): Nothing Alleviating Factor(s): Nothing Associated Signs and Symptoms: Fever, Chest Pain with Cough - Allergy/Home Medications Allergies/Adverse Reactions: Allergies Allergy/AdvReac Type Severity Reaction Status Date / Time lamotrigine [From Lamictal] Allergy Severe Hives/Diff. Verified 12/01/19 00:47 Breathing/I tching olanzapine Allergy Agitation Verified 12/01/19 00:47 Home Medications: Home Medications Latuda 40 mg PO DAILY 12/01/19 [History Confirmed 12/01/19] PMH/Surg Hx/FS Hx/Imm Hx Endocrine/Hematology History: Denies: Hx Anticoagulant Therapy, Hx Diabetes, Hx Thyroid Disease Cardiovascular History: Denies: Hx Hypertension Respiratory History: Denies: Hx Asthma, Hx Chronic Obstructive Pulmonary Disease (COPD) GI History: Denies: Hx Ulcer History: Denies: Hx Dialysis Sensory History: Denies: Hx Deafness EENT History: Denies: Hx Deafness Neurological History: Denies: Hx CVA Psychiatric History: Reports: Hx Anxiety, Hx Bipolar Disorder Infectious Disease History: No Infectious Disease History: Denies: Hx Clostridium Difficile, Hx Hepatitis, Hx Human Immunodeficiency Virus (HIV), Hx of Known/Suspected MRSA, Hx Shingles, Hx Tuberculosis, Hx Known/ Suspected VRE, Hx Known/Suspected VRSA, History Other Infectious Disease, Traveled Outside the [place] in Last 30 Days - Family History Known Family History: Positive: Hypertension, Diabetes, Other - glaucoma - Social History Alcohol Use: Occasionally Hx Substance Use: Yes Substance Use Type: Reports: None Hx Tobacco Use: Yes Smoking Status (MU): Heavy Every Day Tobacco Smoker Type: Cigarettes Amount Used/How Often: 1/2 ppd Have You Smoked in the Last Year: Yes Review of Systems Positive: Fever Eyes: Negative ENT: Negative Cardiovascular: Negative Positive: Cough Gastrointestinal: Negative Genitourinary: Negative Musculoskeletal: Negative Skin: Negative Neurological: Negative Psychological: Normal All Other Systems Reviewed And Are Negative: Yes Physical Exam Triage Information Reviewed: Yes Vital Signs On Initial Exam: Initial Vitals Temp Pulse Resp BP Pulse Ox 98.0 F 125 20 146/90 98 12/01/19 00:10 12/01/19 00:10 12/01/19 00:10 12/01/19 00:10 12/01/19 00:10 Vital Signs Reviewed: Yes Appearance: Positive: Well-Appearing Skin: Positive: Warm Head/Face: Positive: Normal Head/Face Inspection Eyes: Positive: Normal ENT: Positive: Normal ENT inspection Neck: Positive: Supple Respiratory/Lung Sounds: Positive: Clear to Auscultation Cardiovascular: Positive: Normal Abdomen Description: Positive: Nontender Musculoskeletal: Positive: Normal Neurological: Positive: Normal Psychiatric: Positive: Normal AVPU Assessment: Alert - Hood Coma Scale Best Eye Response: 4 - Spontaneous Best Motor Response: 6 - Obeys Commands Best Verbal Response: 5 - Oriented Coma Scale Total: 15 Procedures - Sedation Patient Received Moderate/Deep Sedation with Procedure: No Diagnostics - Vital Signs Vital Signs Temp Pulse Resp BP Pulse Ox 12/01/19 00:10 98.0 F 125 20 146/90 98 - Laboratory Result Diagrams: 12/01/19 00:44 12/01/19 00:44 Lab Statement: Any lab studies that have been ordered have been reviewed, and results considered in the medical decision making process. Disposition - Course Course Of Treatment: Patient complains of low-grade fever, dry cough 1 week. Chest pain and nausea with hacking cough. Mild sore throat. Denies ear pain, CORONA, neck stiffness, SOB, V/D, abdominal pain, change in urine, change in BM. Medical history is none. Tylenol 3 hours ago. Mildly tachycardic with heart rate of 125. Vital signs otherwise within normal limits. WBC 11.8. CRP 23. Labs otherwise within normal limits. Strep negative. Chest x-ray unremarkable. Rx for azithromycin. - Diagnoses Provider Diagnoses: Cough Discharge ED - Sign-Out/Discharge Documenting (check all that apply): Patient Departure - Discharge Plan Condition: Stable Disposition: HOME Prescriptions: Azithromycin 250 mg PO DAILY 5 Days #4 tablet Patient Education Materials: Upper Respiratory Infection (ED) Referrals: No Primary Care Phys,NOPCP [Primary Care Provider] - Additional Instructions: Take antibiotics as directed. Alternate ibuprofen 400 mg with Tylenol 650 mg every 3 hours for fever control. Drink plenty of fluids to maintain hydration. Follow up with primary care. Return to the ED for any new or worsening symptoms. - Billing Disposition and Condition Condition: STABLE Disposition: Home
[2019-12-01 01:09] LABS: ABS Eosinophils 0.1 10^3/ul (0-0.6); ABS Lymphocytes 1.2 10^3/ul (1.0-4.8); ABS Monocytes 1.1 10^3/ul (0-0.8); ABS Neutrophils 9.4 10^3/ul (1.5-7.7); Eosinophil % 0.6 %; Hematocrit 40 % (35-47); Hemoglobin 14.4 g/dL (12.0-16.0); Lymphocyte % 10.2 %; Mean Corpuscular HGB Conc 36 g/dL (31-36); Mean Corpuscular Hemoglobin 33 pg (27-31); Mean Corpuscular Volume 92 fL (80-97); Mean Platelet Volume 8.5 fL (7.4-10.4); Platelet Count 190 10^3/uL (150-450); Red Blood Count 4.39 10^6 /uL (3.70-4.87); Red Cell Distribution Width 14 % (10-15); White Blood Count 11.8 10^3/uL (3.5-10.8)
[2019-12-01 01:10] LABS: Rapid Strep Molecular Negative (Negative)
[2019-12-01 01:10] LABS: Albumin 4.5 g/dL (3.2-5.2); Albumin/Globulin Ratio 1.6 (1-3); BUN/Creatinine Ratio 9.2 (8-20); C Reactive Protein 23.14 mg/L (<8.01); Calcium 9.7 mg/dL (8.6-10.3); EGFR Non-African American 79.3 (>60); Globulin 2.9 g/dL (2-4); Potassium 3.5 mmol/L (3.5-5.0); Total Bilirubin 0.7 mg/dL (0.2-1.0); Total Protein 7.4 g/dL (6.4-8.9)
[2019-12-01 02:07] VITALS: BP 126/83
== END 2019-12-01 02:05 | disposition home or self-care (01) ==
LOC: ED 00:08
DX: R05 Cough (principal); R50.9 Fever, unspecified; R07.89 Other chest pain; R11.0 Nausea; J02.9 Acute pharyngitis, unspecified; Z88.8 Allergy status to other drugs, medicaments and biological substances; F31.9 Bipolar disorder, unspecified; F41.9 Anxiety disorder, unspecified; F17.210 Nicotine dependence, cigarettes, uncomplicated
CPT/HCPCS: 36415; 71046; 80053; 83605; 85025; 86140; 87651; 99283; A9270-GY